=== PATIENT | female | born 1945 | race Caucasian/White ===

== ENCOUNTER → 2020-05-28 13:04 | Outpatient (CLI) | payer MEDICARE, OTHER, SELFPAY ==
--- NOTE | ~2020-05-28 | MM_ITS ---
EXAMINATION: MM screening [facility] HISTORY: Screening TECHNIQUE: Craniocaudal and mediolateral oblique 3-D tomosynthesis images were obtained and synthetic 2-D images were generated. CAD analysis was submitted and interpreted. COMPARISON: Comparison to multiple prior studies sequentially, with oldest reviewed study dated 08/26. BREAST PARENCHYMAL COMPOSITION: Breast composed of scattered areas of fibroglandular density. FINDINGS: There is no evidence of suspicious mass, calcification, or architectural distortion to sugg est malignancy in either breast. There has been no suspicious interval change. IMPRESSION: 1. No mammographic evidence of malignancy. 2. Recommend routine screening mammography in one year. BI-RADS Category 1: Negative Reviewed, dictated and finalized at location A.
== END ==
PROVIDERS: PCP Family Medicine; Visit Provider Family Medicine
DX: Z12.31 Encounter for screening mammogram for malignant neoplasm of breast (principal)
CPT/HCPCS: 77063; 77067

== ENCOUNTER 2021-08-14 11:47 | Outpatient (CLI) | payer MEDICARE, OTHER, SELFPAY ==
--- NOTE | ~2021-08-14 | XR_ITS ---
EXAMINATION: XR chest 2V 08/14/2021 12:15 INDICATION: Cough and shortness of breath. PROCEDURE: 2 view chest COMPARISON: No prior studies for comparison. FINDINGS: The lungs are clear. The cardiomediastinal silhouette is within normal limits. There are no pleural effusions. There is no pneumothorax suspected. There is dextroscoliosis of the thoracic spine. There are cholecystectomy clips. IMPRESSION: 1: NO ACUTE CARDIOPULMONARY DISEASE. Reviewed, dictated and finalized at location B.
== END 2021-08-14 11:48 | disposition home or self-care (01) ==
PROVIDERS: PCP Family Medicine; Visit Provider Nurse Practitioner Family
DX: R05.9 Cough, unspecified (principal)
CPT/HCPCS: 71046

== ENCOUNTER 2021-08-29 14:05 | Outpatient (CLI) | payer MEDICARE, OTHER, SELFPAY ==
[2021-08-29 14:35] LABS: Basophils Percent Auto 0.3 % (0.2-1.2); Eosinophils Absolute Auto 0.2 K/mm3 (0-0.3); Eosinophils Percent Auto 1.6 % (0-4.4); Hematocrit 36.6 % (37.0-47.0); Hemoglobin 10.9 g/dL (12.0-15.0); Immature Granulocyte Absolute 0.08 K/mm3 (0.00-0.031); Immature Granulocyte Percent A 0.6 % (0-0.5); Lymphocytes Absolute Auto 2.28 K/mm3 (0.9-3.2); Lymphocytes Percent Auto 16.7 % (18.3-44.2); Mean Corpuscular HGB Conc 29.8 g/dl (32-36); Mean Corpuscular Hemoglobin 22.1 pg (26-34); Mean Corpuscular Volume 74.1 fl (80-100); Mean Platelet Volume 8.7 fl (7.4-10.4); Monocytes Absolute Auto 1.2 K/mm3 (0.1-0.6); Monocytes Percent Auto 9.1 % (2.6-8.5); Neutrophils Absolute Auto 9.8 K/mm3 (1.3-6.7); Neutrophils Percent Auto 71.7 % (45.5-73.1); Platelet Count Result 321 k/mm3 (150-375); Red Blood Count 4.94 M/mm3 (4.2-5.4); Red Cell Distribution Width 17.7 % (11.5-14.5); White Blood Count 13.6 K/mm3 (4.5-10.0)
[2021-08-29 14:50] LABS: Alanine Aminotransferase 16 U/L (4-35); Alkaline Phosphatase 56 U/L (38-126); Anion Gap 12 mmol/L (8-16); Aspartate Amino Transferase 28 U/L (14-36); Bilirubin,Total 0.5 mg/dL (0.2-1.3); Blood Urea Nitrogen 16 mg/dL (7-17); Calcium 9.4 mg/dL (8.4-10.2); Carbon Dioxide 31 mmol/L (22-30); Chloride 92 mmol/L (98-107); Estimated Glomerular Filt Rate > 60; Glucose 140 mg/dL (65-110); Potassium 3.2 mmol/L (3.4-5.0); Sodium 135 mmol/L (137-145)
== END 2021-08-29 14:06 | disposition home or self-care (01) ==
LOC: ANHLAB 14:09
PROVIDERS: PCP Family Medicine; Visit Provider Physician Assistant
DX: J06.9 Acute upper respiratory infection, unspecified (principal); K21.9 Gastro-esophageal reflux disease without esophagitis; E11.65 Type 2 diabetes mellitus with hyperglycemia
CPT/HCPCS: 36415; 80053; 85025

== ENCOUNTER 2021-09-09 13:36 | Outpatient (CLI) | payer MEDICARE, OTHER, SELFPAY ==
--- NOTE | ~2021-09-09 | CT_ITS ---
EXAMINATION: CT diagnostic chest wo con EXAM DATE: 09/09/2021 14:01 INDICATION: R05.3 - Chronic cough. TECHNIQUE: Spiral CT of the chest without contrast. Axial, coronal and sagittal images of the chest were reviewed. Coronal maximum intensity pixel images of chest reviewed. The dose-length product ( DLP) for this examination was 224.09 mGy-cm. The exposure was tailored according to patient size (au to mA exposure control), and iterative reconstruction (ASIR) was used as additional dose reduction te chnique. Comparison is made to prior examination from 04/28/2015. FINDINGS: There are bibasilar linear opacities, left lower lobe segmental atelectasis and right lower lobe subsegmental atelectasis. There are other scattered reticular nodular opacities most consistent with subacute infectious process, or postinfectious residua. Small amount of lower lobe endobronchia l debris. These findings likely caused by the same process. 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 There are no pleural or peric ardial effusions. There is no mediastinal, hilar or axillary lymphadenopathy. There is no pneum othorax. Heart normal in size. No evidence of coronary arterial calcification. There are cholecy stectomy clips. There is thoracic spondylosis without osteoblastic or osteolytic lesions identified. Multinodular goiter unchanged. IMPRESSION: 1. Left basilar segmental, right basilar subsegmental atelectasis and scattered reticulonodular opac ities likely subacute infectious or postinfectious process. 2. Multinodular goiter. Reviewed, dictated and finalized at location B. [employer] QUALITY INSPECTOR IMPRESSION: 1. Left basilar segmental, right basilar subsegmental atelectasis and scattere d reticulonodular opacities likely subacute infectious or postinfectious proces s. 2. Multinodular goiter.
== END 2021-09-09 13:37 | disposition home or self-care (01) ==
LOC: ANHIMG 13:38
PROVIDERS: PCP Family Medicine; Visit Provider Physician Assistant
DX: R05.3 Chronic cough (principal); R53.83 Other fatigue; E04.2 Nontoxic multinodular goiter
CPT/HCPCS: 71250

== ENCOUNTER 2021-09-15 08:20 | Outpatient (CLI) | payer MEDICARE, OTHER, SELFPAY ==
[2021-09-15 09:11] LABS: Anion Gap 6 mmol/L (8-16); Blood Urea Nitrogen 14 mg/dL (7-17); Calcium 9.6 mg/dL (8.4-10.2); Carbon Dioxide 35 mmol/L (22-30); Chloride 96 mmol/L (98-107); Estimated Glomerular Filt Rate > 60; Glucose 154 mg/dL (65-110); Potassium 3.4 mmol/L (3.4-5.0); Sodium 137 mmol/L (137-145)
== END 2021-09-15 08:21 | disposition home or self-care (01) ==
PROVIDERS: PCP Family Medicine; Visit Provider Family Medicine
DX: E87.6 Hypokalemia (principal)
CPT/HCPCS: 36415; 80048

== ENCOUNTER 2021-09-22 08:44 | Outpatient (CLI) | payer MEDICARE, OTHER, SELFPAY ==
[2021-09-22 09:48] LABS: Basophils Absolute Auto 0.1 K/mm3 (0.0-0.1); Basophils Percent Auto 0.5 % (0.2-1.2); Eosinophils Absolute Auto 0.3 K/mm3 (0-0.3); Eosinophils Percent Auto 2.5 % (0-4.4); Hematocrit 39.2 % (37.0-47.0); Immature Granulocyte Absolute 0.06 K/mm3 (0.00-0.031); Immature Granulocyte Percent A 0.5 % (0-0.5); Lymphocytes Absolute Auto 2.63 K/mm3 (0.9-3.2); Lymphocytes Percent Auto 20.2 % (18.3-44.2); Mean Corpuscular HGB Conc 30.6 g/dl (32-36); Mean Corpuscular Volume 71.9 fl (80-100); Mean Platelet Volume 10.1 fl (7.4-10.4); Monocytes Absolute Auto 1.2 K/mm3 (0.1-0.6); Monocytes Percent Auto 9.4 % (2.6-8.5); Neutrophils Absolute Auto 8.7 K/mm3 (1.3-6.7); Neutrophils Percent Auto 66.9 % (45.5-73.1); Platelet Count Result 318 k/mm3 (150-375); Red Blood Count 5.45 M/mm3 (4.2-5.4); Red Cell Distribution Width 18.4 % (11.5-14.5)
[2021-09-22 10:45] LABS: Add Urine Microscopic? YES; Appearance Urine Cloudy (Clear); Bacteria Urine 1+ /hpf; Bilirubin Urine Negative (Negative); Blood Urine Negative (Negative); Color Urine Amber (Yellow); Glucose Urine UA Negative (Negative); Ketones Urine Trace mg/dL (Negative); Leukocyte Esterase Ur 1+ LEU/UL (Negative); Mucus Urine Rare /lpf; Nitrate Urine Positive (Negative); Protein Urine 1+ mg/dL (Negative); Squamous Epithelial Cell Urine Many /hpf (Few); Urobilinogen Urine Negative mg/dL (<2.0); WBC Urine 16-20 /hpf
== END 2021-09-22 08:45 | disposition home or self-care (01) ==
PROVIDERS: PCP Family Medicine; Visit Provider Family Medicine
DX: E11.65 Type 2 diabetes mellitus with hyperglycemia (principal); N39.0 Urinary tract infection, site not specified; R05.9 Cough, unspecified
CPT/HCPCS: 36415; 81001; 85025; 87077; 87086; 87186

== ENCOUNTER 2021-11-03 10:24 | Outpatient (CLI) | payer MEDICARE, OTHER, SELFPAY ==
[2021-11-03 11:09] LABS: Immunoglobulin A 300 mg/dL (70-400); Immunoglobulin G 822 mg/dL (700-1600); Immunoglobulin M 71 mg/dL (40-230)
[2021-11-07 02:27] LABS: Immunoglobulin E 24 kU/L (<=114)
== END 2021-11-03 10:25 | disposition home or self-care (01) ==
LOC: ANHLAB 10:35
PROVIDERS: PCP Family Medicine; Visit Provider Internal Medicine Critical Care Medicine
DX: R05.3 Chronic cough (principal)
CPT/HCPCS: 36415; 82784; 82785

== ENCOUNTER 2021-12-05 11:13 | Outpatient (CLI) | payer MEDICARE, OTHER, SELFPAY ==
[2021-12-05 13:16] LABS: Procalcitonin 0.1 ng/mL
--- NOTE | 2021-12-05 17:42 | WPDPFTINT ---
PFT Procedure Performed PFT Procedure Performed Spirometry with Pre/Post Bronchodilator Plethysmography (Lung Vol) Diffusing Cap (DLCO) Flow Vol Loop PFT Interpretation This is a pulmonary function test with pre and post-bronchodilator spirometry, plethysmography and diffusing capacity. The test was performed and results interpreted in accordance with the 2019 and 2005 ATS/ERS Task Force guidelines respectively using the Global Lung Function Initiative-2012 reference equations. Patient demonstrated good effort and cooperation. Reproducibility criteria were met. The quality of the pre bronchodilator spirometry maneuver was Grade A and post bronchodilator spirometry maneuver was Grade A. Findings: Spirometry: The contour the inspiratory and expiratory flow tracing are normal. The pre bronchodilator FVC is 2.46 L, 87% predicted. The pre bronchodilator FEV1 is 1.82 L, 84% predicted. The pre bronchodilator FEV1: FVC ratio 74%. The post bronchodilator FVC is 2.33 L, representing a 5% decrease. The post bronchodilator FEV1 is 1.75 L, representing a 4% decrease. The post bronchodilator FEV1: FVC ratio 75%. Plethysmography: The total lung capacity is 4.36 L, 84% predicted. The functional residual capacity is 2.14 L, 72% predicted. The residual volume is 1.90 L, 82% predicted. Diffusing capacity: The diffusing capacity unadjusted for hemoglobin is 15.9, 78% predicted. The diffusing capacity adjusted for alveolar volume is 4.09, 98% predicted. Impression: The spirometry is normal without evidence of an obstructive abnormality. There is no significant improvement after inhaling a single dose of albuterol. The lung volumes are normal. The diffusing capacity is normal. There are no prior studies for comparison
== END 2021-12-05 11:14 | disposition home or self-care (01) ==
PROVIDERS: PCP Family Medicine; Visit Provider Internal Medicine Critical Care Medicine
DX: R05.3 Chronic cough (principal)
CPT/HCPCS: 36415; 84145; 94060; 94726; 94729

== ENCOUNTER 2022-02-02 14:40 | Outpatient (CLI) | payer MEDICARE, OTHER, SELFPAY ==
[2022-02-02 15:04] LABS: Basophils Percent Auto 0.3 % (0.2-1.2); Eosinophils Absolute Auto 0.2 K/mm3 (0-0.3); Eosinophils Percent Auto 2.6 % (0-4.4); Hematocrit 34.1 % (37.0-47.0); Hemoglobin 9.6 g/dL (12.0-15.0); Immature Granulocyte Absolute 0.04 K/mm3 (0.00-0.031); Immature Granulocyte Percent A 0.4 % (0-0.5); Lymphocytes Absolute Auto 1.97 K/mm3 (0.9-3.2); Lymphocytes Percent Auto 21.2 % (18.3-44.2); Mean Corpuscular HGB Conc 28.2 g/dl (32-36); Mean Corpuscular Hemoglobin 21.6 pg (26-34); Mean Corpuscular Volume 76.8 fl (80-100); Monocytes Absolute Auto 0.7 K/mm3 (0.1-0.6); Monocytes Percent Auto 7.5 % (2.6-8.5); Neutrophils Absolute Auto 6.3 K/mm3 (1.3-6.7); Platelet Count Result 175 k/mm3 (150-375); Red Blood Count 4.44 M/mm3 (4.2-5.4); Red Cell Distribution Width 15.4 % (11.5-14.5); White Blood Count 9.3 K/mm3 (4.5-10.0)
[2022-02-02 15:27] LABS: Anisocytosis 1+ (NORMAL); Platelet Estimate Adequate (Adequate); Poikilocytosis 1+ (NORMAL)
[2022-02-02 16:48] LABS: Iron 29 ug/dL (37-170)
[2022-02-02 16:57] LABS: Percent Iron Saturation 6 % (20-50)
[2022-02-02 17:25] LABS: Alanine Aminotransferase 12 U/L (4-35); Albumin Level 4.6 g/dL (3.5-5.1); Alkaline Phosphatase 67 U/L (38-126); Anion Gap 8 mmol/L (8-16); Aspartate Amino Transferase 33 U/L (14-36); Bilirubin,Total 0.4 mg/dL (0.2-1.3); Blood Urea Nitrogen 19 mg/dL (7-17); Calcium 9.1 mg/dL (8.4-10.2); Carbon Dioxide 30 mmol/L (22-30); Chloride 98 mmol/L (98-107); Estimated Glomerular Filt Rate > 60; Glucose 142 mg/dL (65-110); Lactate Dehydrogenase 306 U/L (313-618); Potassium 3.7 mmol/L (3.4-5.0); Sodium 136 mmol/L (137-145)
[2022-02-02 18:24] LABS: Folic Acid 8.5 ng/mL (2.76->20)
[2022-02-02 18:32] LABS: Ferritin 8.58 ng/mL (11.1-264)
[2022-02-05 11:15] LABS: Methylmalonic Acid 350 nmol/L (87-318)
== END 2022-02-02 14:41 | disposition home or self-care (01) ==
PROVIDERS: PCP Family Medicine; Visit Provider Internal Medicine Hematology & Oncology
DX: D64.9 Anemia, unspecified (principal)
CPT/HCPCS: 36415; 80053; 82607; 82728; 82746; 83540; 83550; 83615; 83921; 85025

== ENCOUNTER → 2022-04-10 12:03 | Outpatient (CLI) | payer MEDICARE, OTHER, SELFPAY ==
--- NOTE | ~2022-04-10 | MM_ITS ---
EXAMINATION: MM screening [facility] BI w hilda HISTORY: Screening TECHNIQUE: Craniocaudal and mediolateral oblique 3-D tomosynthesis images were obtained and synthetic 2-D images were generated. CAD analysis was submitted and interpreted. COMPARISON: No prior mammogram is available for comparison at this institution. BREAST PARENCHYMAL COMPOSITION: Breast composed of scattered areas of fibroglandular density FINDINGS: There is no evidence of suspicious mass, calcification, or architectural distortion to sugg est malignancy in either breast. There has been no suspicious interval change. IMPRESSION: 1. No mammographic evidence of malignancy. 2. Recommend routine screening mammography in one year. BI-RADS Category 1: Negative Reviewed, dictated and finalized at location A.
== END ==
PROVIDERS: PCP Family Medicine; Visit Provider Family Medicine
DX: Z12.31 Encounter for screening mammogram for malignant neoplasm of breast (principal)
CPT/HCPCS: 77063; 77067

== ENCOUNTER 2022-07-08 15:30 | Outpatient (CLI) | payer MEDICARE, OTHER, SELFPAY ==
--- NOTE | ~2022-07-08 | US_ITS ---
EXAMINATION: US thyroid DATE: 07/08/2022 17:42 INDICATION: TECHNIQUE: Multiple ultrasound images of the thyroid were obtained. COMPARISON: 03/17/2019, 01/18/2018, 12/24/2016, and 06/16/2016. FINDINGS: The right thyroid lobe measures 6.8 x 3.7 x 4.3 cm. The left thyroid lobe measures 7.3 x 4.8 x 6.8 c m. Heterogeneous parenchymal echogenicity. Numerous solid and mostly solid nodular areas, without no rmal intervening parenchyma, stable from the prior studies given interval differences in technique. IMPRESSION: Stable multinodular goiter, likely not clinically significant. Reviewed, dictated and finalized at location K.
== END 2022-07-08 15:31 | disposition home or self-care (01) ==
LOC: ANHIMG 15:34
PROVIDERS: PCP Family Medicine; Visit Provider Nurse Practitioner Family
DX: E04.2 Nontoxic multinodular goiter (principal)
CPT/HCPCS: 76536

== ENCOUNTER 2022-09-11 08:08 | Outpatient (CLI) | payer MEDICARE, OTHER, SELFPAY | END 2022-09-11 08:09 | disposition home or self-care (01) | PROVIDERS: PCP Family Medicine; Visit Provider Otolaryngology | DX: H90.41 Sensorineural hearing loss, unilateral, right ear, with unrestricted hearing on the contralateral side (principal) | CPT/HCPCS: 36415; 80053; 83036; 92557; 92567 ==

== ENCOUNTER 2022-09-11 10:18 | Outpatient (CLI) | payer MEDICARE, OTHER, SELFPAY ==
[2022-09-11 11:06] LABS: Alanine Aminotransferase 17 U/L (6-35); Albumin Level 4.6 g/dL (3.5-5.1); Alkaline Phosphatase 74 U/L (38-126); Anion Gap 9 mmol/L (8-16); Aspartate Amino Transferase 28 U/L (14-36); Bilirubin,Total 0.6 mg/dL (0.2-1.3); Blood Urea Nitrogen 19 mg/dL (7-17); Calcium 9.6 mg/dL (8.4-10.2); Carbon Dioxide 32 mmol/L (22-30); Chloride 97 mmol/L (98-107); Estimated Glomerular Filt Rate > 60; Glucose 136 mg/dL (65-110); Potassium 3.6 mmol/L (3.4-5.0); Sodium 138 mmol/L (137-145)
[2022-09-11 11:14] LABS: Hemoglobin A1C 7.3 % (<5.7)
== END 2022-09-11 10:19 | disposition home or self-care (01) ==
PROVIDERS: PCP Family Medicine; Visit Provider Nurse Practitioner Family
DX: E87.6 Hypokalemia (principal); E11.65 Type 2 diabetes mellitus with hyperglycemia
CPT/HCPCS: 36415; 80053; 83036

== ENCOUNTER 2022-09-23 10:26 | Outpatient (CLI) | payer MEDICARE, OTHER, SELFPAY ==
--- NOTE | 2022-09-23 10:47 | ECG_ITS ---
Measurements Intervals [place] Rate: 80 P: 49 [place]: 178 QRS: -14 QRSD: 101 T: 55 QT: 407 QTc: 472 Interpretive Statements SINUS RHYTHM DELAYED PRECORDIAL R/S TRANSITION BORDERLINE ST-T WAVE ABNORMALITY- HIGH LATERAL LEADS BASELINE ARTIFACT- I, III, AVR, AVL, AVF BORDERLINE ECG NO PREVIOUS ECG AVAILABLE FOR COMPARISON Electronically Signed On 09-23-2022 12:38:16 DIAGNOSTIC IMAGING MANAGER by Kishna Bullock D.O.
== END 2022-09-23 10:27 | disposition home or self-care (01) ==
PROVIDERS: PCP Family Medicine; Visit Provider Otolaryngology
DX: I10 Essential (primary) hypertension (principal); Z01.818 Encounter for other preprocedural examination; R94.31 Abnormal electrocardiogram [ECG] [EKG]
CPT/HCPCS: 93005

== ENCOUNTER 2022-09-25 00:52 | Day surgery (SDC) | payer MEDICARE, OTHER, SELFPAY ==
[2022-09-16 10:37] VITALS: BMI 34.0
--- NOTE | 2022-09-16 11:06 | PC.NURSE ---
Report to the Outpatient Waiting Room, entrance under the green pavilion located off [facility], at time __8:45AM on date __09/25/22 . Planned Procedure Time: __10:45AM . Time changes happen often and if your time is changed the preop area will call you the afternoon before. - You and your visitor will be asked to self-screen and do not enter if you have any COVID symptoms. - Only one visitor is requested with a max of two and NO children visitors are allowed at this time. - The patient visitor may be requested to leave or wait in car when not with patient due to distancing restrictions. - A mask is optional within the hospital. Patients may have clear liquids (water, carbonated beverages, clear teas, apple juice) until 3 hours prior to surgery with a maximum of 20 ounces. - No food from midnight until time of surgery Take the following medications with a SIP of water the morning of surgery: _ANORO ELLIPTA, PROPRANOLOL, ALBUTEROL INH NEEDED, CLONAZEPAM NEEDED, FLONASE NEEDED Medications to discontinue per physician HOLD ALL VITAMINS/SUPPLEMENTS 3 DAYS PRE-OP Date to take last dose____09/21/22 Please no make-up, nail swedish, hairspray, perfume, deodorant, or body powder the day of surgery. No jewelry (including any body piercings) or valuables the day of surgery, leave them at home. Please take a shower or bath the night before, or the morning of, surgery with an antibacterial soap. Wear comfortable, loose fitting clothing. Children are encouraged to wear pajamas. - Jewelry must be removed prior to entering the operating room. Rings and piercings that are not removed may be cut off. - The hospital will not accept responsibility for valuables. - Please leave all valuables, including medications, at home the day of surgery. If you are going home after surgery, a licensed clamp truck driver must drive you home. - NO public transportation without another adult if you receive anesthesia. - We recommend that an adult stay with you for 24 hours following discharge. - We also recommend that you do not drive, make important decision, drink alcoholic beverages, or take any drugs that were not prescribed by your health care provider for at least 24 hours after your discharge time. Follow any additional instructions given to you from your surgeon. If you or anyone in your household have experienced Covid symptoms in the past week, please notify your surgeon or the nurse liaison at the phone number below for possible testing. Telephone instructions given to __PATIENT and asked if any additional questions and then verbalized understanding. Patient advised to call surgeon office or pre surgery nurse liaison [phone] if any additional questions.
--- NOTE | 2022-09-24 10:50 | PM.IMHP ---
H&P: HPI History of Present Illness Date/Time: 09/24/22 10:50 Chief Complaint: hearing loss bilateral chronic otitis media bilateral eustachian tube dysfunction Narrative: planned surgical procedure Review of Systems Review of Systems: All systems reviewed & are unremarkable except as noted in HPI and below PMFSH Past Medical History Medical History Anxiety Controlled diabetes mellitus with hyperglycemia Diabetes mellitus type 2, uncontrolled Essential hypertension Hypertension LEONID (iron deficiency anemia) Mixed hyperlipidemia Nausea Obstructive sleep apnea UTI (urinary tract infection) Wellness examination Family History Family History Father Arthritis Social History Social History Smoking status: Never smoker Second hand tobacco smoke exposure: Yes (18 YEARS W/ ) Alcohol intake: current Substance use: never Substance use type: does not use Gender identity (if verbalized by the patient): Female Sexual Orientation (if Verbalized by the Patient): Straight or Heterosexual Spiritual care concerns: No Meds Home Medications and Allergies Home Medications Medication Instructions Recorded Confirmed Type blood sugar diagnostic (Blood #100 ea 10/30/19 09/14/22 Rx Glucose Test strips) acetaminophen 650 mg 650 mg PO Q8H PRN pain #360 tabs 07/08/20 09/16/22 Rx tablet,extended release Anoro Ellipta 62.5 mcg-25 1 inh inhalation DAILY 90 days 12/22/21 09/16/22 Rx mcg/actuation powder for #180 ea inhalation (umeclidinium-vilanterol) albuterol sulfate 90 mcg/actuation 1 inh inhalation Q4H PRN shortness 01/01/22 09/16/22 Rx aerosol inhaler of breath or wheezing 1 month #8.5 grams blood sugar diagnostic (FreeStyle #100 ea 04/15/22 09/14/22 Rx Lite Strips) blood-glucose meter (FreeStyle #1 ea 04/15/22 09/14/22 Rx Lite Meter kit) propranolol 10 mg tablet 20 mg PO BID #360 tabs 05/21/22 09/16/22 Rx clonazepam 0.5 mg tablet 0.5 mg PO TID PRN anxiety #90 tabs 09/14/22 09/16/22 Rx dulaglutide 3 mg/0.5 mL 3 mg (0.5 mL) subcut WEEKLY #6 mL 09/14/22 09/16/22 Rx subcutaneous pen injector (Trulicity) pantoprazole 40 mg tablet,delayed 40 mg PO QAM #90 tabs 09/14/22 09/16/22 Rx release (Protonix) sitagliptin phos 50 mg-metformin 1 tablet PO BID #180 tabs 09/14/22 09/16/22 Rx ER 1,000 mg tablet,extend rel 24h mp (Janumet XR) cyanocobalamin (vitamin B-12) 1,000 mcg PO DAILY 09/16/22 09/16/22 History 1,000 mcg capsule diphenhydramine HCl 25 mg capsule 25 mg PO TID PRN Sinus Symptoms 09/16/22 09/16/22 History (Benadryl) fluticasone propionate 50 1 spray intranasal DAILY PRN Nasal 09/16/22 09/16/22 History mcg/actuation nasal Congestion spray,suspension (Flonase Allergy Relief) hydrochlorothiazide 25 mg tablet 25 mg PO QAM 09/16/22 09/16/22 History meloxicam 7.5 mg tablet 7.5 mg PO DAILY #90 tabs 09/21/22 Rx pravastatin 20 mg tablet 20 mg PO DAILY #90 tabs 09/21/22 Rx Allergies Allergy/AdvReac Type Severity Reaction Status Date / Time tramadol Allergy Severe Confusion Verified 09/16/22 10:24 ciprofloxacin Allergy Unknown avoid r/t Verified 09/16/22 10:24 to levaquin allergy levofloxacin Allergy Unknown Neck Verified 09/16/22 10:24 muscle stiffness codeine AdvReac Unknown Headache Verified 09/16/22 10:24 Quinolones AdvReac Unknown neck Verified 09/16/22 10:24 muscle tightness Exam Narrative: fluid both ears Assessment and Plan Assessment and plan (1) Chronic otitis media of both ears: Code(s): H66.93 - Otitis media, unspecified, bilateral Status: Acute Assessment and Plan: plan operating room bilateral eustachian tube balloon dilation nasal endoscopy bilateral myringotomy with T-tube insertion
[2022-09-25] VITALS (7 sets, daily range): BP systolic 128–160; BP diastolic 67–92; PULSE 80–91; RESP 16–20; TEMP 36.2–37.5; O2SAT 95–100
--- NOTE | 2022-09-25 07:15 | WPDHPUPDATE1 ---
History and Physical Update Update Date/Time: 09/25/22 07:15 History and Physical has been reviewed, including an updated exam of the patient. There are NO changes in the patient's condition. Risks, benefits, and alternatives have been discussed and questions answered. Patient agrees to proceed with procedure.
--- NOTE | 2022-09-25 10:14 | WPDANESEPPF ---
Anes - Initial Pre Proc Eval Procedure: Operation Date: 09/25/22 11:30 Proposed Procedures p Bilateral Myringotomy with Insertion T-Tubes - Carson Salazar MD s Bilateral Eustachian Tube Balloon Dilation with Nasal Endoscopy - Carson Salazar MD Date/Time: 09/25/22 10:14 Surgeon: Carson Salazar MD Pre Op Diagnosis: Gregg Chronic Otitis Media, Gregg Eustachian Tube Dysf Patient Data Age: 77 Gender: F Height: 1.63 m Weight: 87.6 kg Last Vital Signs Temp 36.2 C L 09/25/22 09:59 Pulse 89 09/25/22 09:59 Resp 16 09/25/22 09:59 BP 128/67 09/25/22 09:59 Pulse Ox 98 09/25/22 09:59 O2 Del Method Room Air 09/25/22 09:59 Allergies Allergy/AdvReac Type Severity Reaction Status Date / Time tramadol Allergy Severe Confusion Verified 09/25/22 10:04 ciprofloxacin Allergy Intermediate avoid r/t Verified 09/25/22 10:04 to levaquin allergy levofloxacin Allergy Intermediate Neck Verified 09/25/22 10:04 muscle stiffness Quinolones AdvReac Intermediate neck Verified 09/25/22 10:04 muscle tightness codeine AdvReac Mild Headache Verified 09/25/22 10:04 Home Medications Medication Instructions Recorded Confirmed Type blood sugar diagnostic (Blood #100 ea 10/30/19 09/14/22 Rx Glucose Test strips) acetaminophen 650 mg 650 mg PO Q8H PRN pain #360 tabs 07/08/20 09/16/22 Rx tablet,extended release Anoro Ellipta 62.5 mcg-25 1 inh inhalation DAILY 90 days 12/22/21 09/25/22 Rx mcg/actuation powder for #180 ea inhalation (umeclidinium-vilanterol) albuterol sulfate 90 mcg/actuation 1 inh inhalation Q4H PRN shortness 01/01/22 09/25/22 Rx aerosol inhaler of breath or wheezing 1 month #8.5 grams blood sugar diagnostic (FreeStyle #100 ea 04/15/22 09/14/22 Rx Lite Strips) blood-glucose meter (FreeStyle #1 ea 04/15/22 09/14/22 Rx Lite Meter kit) propranolol 10 mg tablet 20 mg PO BID #360 tabs 05/21/22 09/25/22 Rx clonazepam 0.5 mg tablet 0.5 mg PO TID PRN anxiety #90 tabs 09/14/22 09/25/22 Rx dulaglutide 3 mg/0.5 mL 3 mg (0.5 mL) subcut WEEKLY #6 mL 09/14/22 09/16/22 Rx subcutaneous pen injector (Trulicity) pantoprazole 40 mg tablet,delayed 40 mg PO QAM #90 tabs 09/14/22 09/25/22 Rx release (Protonix) sitagliptin phos 50 mg-metformin 1 tablet PO BID #180 tabs 09/14/22 09/25/22 Rx ER 1,000 mg tablet,extend rel 24h mp (Janumet XR) cyanocobalamin (vitamin B-12) 1,000 mcg PO DAILY 09/16/22 09/25/22 History 1,000 mcg capsule diphenhydramine HCl 25 mg capsule 25 mg PO TID PRN Sinus Symptoms 09/16/22 09/25/22 History (Benadryl) fluticasone propionate 50 1 spray intranasal DAILY PRN Nasal 09/16/22 09/25/22 History mcg/actuation nasal Congestion spray,suspension (Flonase Allergy Relief) meloxicam 7.5 mg tablet 7.5 mg PO DAILY #90 tabs 09/21/22 09/25/22 Rx pravastatin 20 mg tablet 20 mg PO DAILY #90 tabs 09/21/22 09/25/22 Rx hydrochlorothiazide 25 mg tablet 25 mg PO QAM #90 tabs 09/24/22 09/25/22 Rx Patient hx anesthesia problems: post op nausea/vomiting Family hx anesthesia problems: none Results Review: All pre-operative results and documents have been reviewed as part of the pre-operative evaluation. [facility] Past Medical History Medical History Anxiety Controlled diabetes mellitus with hyperglycemia Diabetes mellitus type 2, uncontrolled Essential hypertension Hypertension LEONID (iron deficiency anemia) Mixed hyperlipidemia Nausea Obstructive sleep apnea UTI (urinary tract infection) Wellness examination Family History Family History Father Arthritis Social History Social History Smoking status: Never smoker Second hand tobacco smoke exposure: Yes (18 YEARS W/ ) Alcohol intake: current Substance use: never Substance use type: does n
[2022-09-25] MEDS: LACTATED RINGERS 1,000 ML 30 ML IV CONT (10:25)
[2022-09-25 10:27] LABS: Glucose Point of Care 162 mg/dl (65-105)
[2022-09-25] MEDS: SCOPOLAMINE 1.5 MG PATCH TRANSDERM (10:27)
[2022-09-25] MEDS: CIPROFLOXACIN HCL 0.3% OP SOLN 2.5 ML BTL 4 DROP EACH EAR (10:37)
[2022-09-25] MEDS: OXYMETAZOLINE HCL 0.05% NAS 15 ML BTL (*BKC) 1 SPRAY NASAL (10:47)
[2022-09-25 11:29] LABS: Glucose Point of Care 122 mg/dl (65-105)
--- NOTE | 2022-09-25 11:35 | P.OP_ITS ---
Procedure Note - Detailed Date of Procedure 09/25/22 Pre-op Diagnosis Gregg Chronic Otitis Media, Gregg Eustachian Tube Dysf Post-op Diagnosis Same Procedure Performed Bilateral eustachian tube balloon dilation, nasal endoscopy, myringotomy with T- tube insertion Surgeon Carson Salazar MD Anesthesia General Indications see above Findings copious amounts of fluid in the left middle ear purulence on right side of the nasal passage likely from sinuses successful dilation of both eustachian tubes Description of Procedure patient identified consent verified. Patient brought operating. Time-out anesthesia induced endotracheal tube secured taped left lower lip. Patient prepped draped position. Second time-out performed. Boris microscope utilized right EAC examined myringotomy made T-Tube placed drops placed. Left-sided myringotomy made copious amounts of serous fluid suctioned out T-Tube placed successfully drops placed. Afrin-soaked pledgets placed nasal passages allowed to sit for 5 then. Turbinates outfractured not part of the procedure per se minimally outfractured. Eustachian tube balloon dilation performed on both sides following nasal endoscopy. Successful dilation. There is purulence from the right middle meatus maxillary sinus. Patient tolerated the procedure well complications loss 1 cc. Performed all portions of the procedure. Care the patient given Anesthesiology no complications patient taken. Estimated Blood Loss 1 Drains No Packing No Pathology None sent Complications No immediate complications Condition Stable Disposition PACU
== END 2022-09-25 12:50 | disposition home or self-care (01) ==
PROVIDERS: Absent Provider Otolaryngology; PCP Family Medicine; Visit Provider Otolaryngology
PROC: (CPT 69436; principal; 2022-09-25 11:30)
PROC: (CPT 69436; 2022-09-25 11:30)
DX: H66.93 Otitis media, unspecified, bilateral (principal); H69.83 Other specified disorders of Eustachian tube, bilateral; H91.93 Unspecified hearing loss, bilateral; E11.9 Type 2 diabetes mellitus without complications; I10 Essential (primary) hypertension; E78.2 Mixed hyperlipidemia; G47.33 Obstructive sleep apnea (adult) (pediatric); F41.9 Anxiety disorder, unspecified; Z79.51 Long term (current) use of inhaled steroids; Z79.899 Other long term (current) drug therapy; Z79.84 Long term (current) use of oral hypoglycemic drugs; E66.9 Obesity, unspecified; Z68.33 Body mass index [BMI] 33.0-33.9, adult
CPT/HCPCS: 69436; 69706; 82948; A9270; C1726; J0330; J1100; J2405; J2704; J7030; J7120

== ENCOUNTER 2023-06-23 12:05 | Outpatient (CLI) | payer MEDICARE, OTHER, SELFPAY ==
[2023-06-23 13:05] LABS: Anion Gap 9 mmol/L (8-16); Blood Urea Nitrogen 16 mg/dL (7-17); Carbon Dioxide 32 mmol/L (22-30); Chloride 94 mmol/L (98-107); Potassium 3.6 mmol/L (3.4-5.0); Sodium 135 mmol/L (137-145)
[2023-06-23 13:06] LABS: Alanine Aminotransferase 16 U/L (6-35); Albumin Level 4.4 g/dL (3.5-5.1); Alkaline Phosphatase 70 U/L (38-126); Aspartate Amino Transferase 26 U/L (14-36); Bilirubin,Total 0.5 mg/dL (0.2-1.3); Calcium 8.9 mg/dL (8.4-10.2); Estimated Glomerular Filt Rate > 60; Glucose 220 mg/dL (65-110)
[2023-06-23 13:37] LABS: Hemoglobin A1C 6.8 % (<5.7)
== END 2023-06-23 12:06 | disposition home or self-care (01) ==
LOC: ANHLAB 12:07
PROVIDERS: PCP Family Medicine; Visit Provider Family Medicine
DX: E11.9 Type 2 diabetes mellitus without complications (principal)
CPT/HCPCS: 36415; 80053; 83036

== ENCOUNTER 2023-12-24 13:11 | Outpatient (CLI) | payer MEDICARE, OTHER, SELFPAY ==
--- NOTE | ~2023-12-24 | CT_ITS ---
CT Scan of the Chest without Contrast: Clinical Indication: Chronic cough Technique: Contiguous sections were acquired throughout the chest without intravenous contrast. Dose reduction technique was used on this scan by utilizing automated exposure control and iterative recon struction technique. The dose-length product (DLP) was 243.40 mGy-cm. COMPARISON: 09/09/2021 Findings: There is no evidence of any significant mediastinal, hilar or axillary lymphadenopathy. Aberrant righ t subclavian artery noted. The mediastinal soft tissues otherwise appear normal. There is no evidence of pleural or pericardial effusion. Patchy irregular airspace opacity is noted in the medial aspect of the superior segment left lower lo be. No other pulmonary abnormality seen. Images through the upper abdomen reveal cholecystectomy clips. Impression: Focal, patchy irregular airspace disease at the medial aspect of the superior segment left lower lobe . Findings could reflect acute focal pneumonia versus chronic postinflammatory change scarring. Reviewed, dictated and finalized at [facility]. K SUBWAY REPAIR SUPERVISOR Impression: Focal, patchy irregular airspace disease at the medial aspect of the superior s egment left lower lobe. Findings could reflect acute focal pneumonia versus chr onic postinflammatory change scarring.
== END 2023-12-24 13:12 | disposition home or self-care (01) ==
LOC: ANHIMG 13:11
PROVIDERS: PCP Family Medicine; Visit Provider Internal Medicine Critical Care Medicine
DX: R91.8 Other nonspecific abnormal finding of lung field (principal); R05.3 Chronic cough
CPT/HCPCS: 71250

== ENCOUNTER 2024-02-18 12:11 | Outpatient (CLI) | payer MEDICARE, OTHER, SELFPAY ==
--- NOTE | ~2024-02-18 | MM_ITS ---
EXAMINATION: MM screening [facility] BI w hilda HISTORY: Screening mammogram TECHNIQUE: Craniocaudal and mediolateral oblique 3-D tomosynthesis images were obtained and synthetic 2-D images were generated. CAD analysis was submitted and interpreted. COMPARISON: 04/10/2022, 05/28/2020 bilateral screening mammogram examinations BREAST PARENCHYMAL COMPOSITION: There are scattered areas of fibroglandular density. FINDINGS: There is no evidence of suspicious mass, calcification, or architectural distortion to sugg est malignancy in either breast. There has been no suspicious interval change. IMPRESSION: 1. No mammographic evidence of malignancy. 2. Recommend routine screening mammography in one year. BI-RADS Category 1: Negative Reviewed, dictated and finalized at location A.
== END 2024-02-18 12:12 ==
LOC: MICIMG 02-21 07:36
PROVIDERS: PCP Family Medicine; Visit Provider Family Medicine
DX: Z12.31 Encounter for screening mammogram for malignant neoplasm of breast (principal)
CPT/HCPCS: 77063; 77067

== ENCOUNTER 2024-06-07 13:15 | Outpatient (CLI) | payer MEDICARE, OTHER, SELFPAY ==
[2024-06-07 13:29] LABS: Basophils Percent Auto 0.5 % (0.2-1.2); Eosinophils Absolute Auto 0.1 K/mm3 (0-0.3); Eosinophils Percent Auto 1.6 % (0-4.4); Hematocrit 35.4 % (37.0-47.0); Hemoglobin 10.7 g/dL (12.0-15.0); Immature Granulocyte Absolute 0.04 K/mm3 (0.00-0.031); Immature Granulocyte Percent A 0.5 % (0-0.5); Lymphocytes Absolute Auto 2.15 K/mm3 (0.9-3.2); Lymphocytes Percent Auto 25.2 % (18.3-44.2); Mean Corpuscular HGB Conc 30.2 g/dl (32-36); Mean Corpuscular Hemoglobin 23.8 pg (26-34); Mean Corpuscular Volume 78.7 fl (80-100); Mean Platelet Volume 9.5 fl (7.4-10.4); Monocytes Absolute Auto 0.7 K/mm3 (0.1-0.6); Monocytes Percent Auto 8.3 % (2.6-8.5); Neutrophils Absolute Auto 5.5 K/mm3 (1.3-6.7); Neutrophils Percent Auto 63.9 % (45.5-73.1); Platelet Count Result 161 k/mm3 (150-375); Red Cell Distribution Width 15.4 % (11.5-14.5); White Blood Count 8.5 K/mm3 (4.5-10.0)
[2024-06-07 13:37] LABS: Hypochromasia 2+; Platelet Estimate Adequate (Adequate); Schistocytes None Seen
[2024-06-07 13:38] LABS: Anisocytosis 2+; Microcytosis 2+ (NORMAL)
[2024-06-07 19:54] LABS: Iron 42 ug/dL (37-170)
[2024-06-07 20:03] LABS: Percent Iron Saturation 11 % (20-50)
[2024-06-07 20:30] LABS: Ferritin 8.76 ng/mL (11.1-264)
[2024-06-07 22:52] LABS: Folic Acid 5.7 ng/mL (2.76->20)
== END 2024-06-07 13:16 | disposition home or self-care (01) ==
LOC: ANHLAB 13:17
PROVIDERS: PCP Family Medicine; Visit Provider Internal Medicine Hematology & Oncology
DX: D64.9 Anemia, unspecified (principal)
CPT/HCPCS: 36415; 82607; 82728; 82746; 83540; 83550; 85025

== ENCOUNTER 2024-07-31 11:08 | Outpatient (CLI) | payer MEDICARE, OTHER, SELFPAY ==
[2024-07-31 11:23] LABS: Hematocrit 37.1 % (37.0-47.0); Hemoglobin 11.3 g/dL (12.0-15.0); Mean Corpuscular HGB Conc 30.5 g/dl (32-36); Mean Corpuscular Hemoglobin 24.2 pg (26-34); Mean Corpuscular Volume 79.6 fl (80-100); Mean Platelet Volume 9.4 fl (7.4-10.4); Platelet Count Result 138 k/mm3 (150-375); Red Blood Count 4.66 M/mm3 (4.2-5.4); Red Cell Distribution Width 16.5 % (11.5-14.5); White Blood Count 7.5 K/mm3 (4.5-10.0)
[2024-07-31 13:31] LABS: Iron 59 ug/dL (37-170)
[2024-07-31 13:46] LABS: Percent Iron Saturation 16 % (20-50)
== END 2024-07-31 11:09 | disposition home or self-care (01) ==
LOC: ANHLAB 11:11
PROVIDERS: PCP Family Medicine; Visit Provider Internal Medicine Hematology & Oncology
DX: D64.9 Anemia, unspecified (principal)
CPT/HCPCS: 36415; 82728; 83540; 83550; 85027

== ENCOUNTER 2024-12-04 11:43 | Outpatient (CLI) | payer MEDICARE, OTHER, SELFPAY ==
[2024-12-04 11:57] LABS: Hematocrit 37.6 % (37.0-47.0); Hemoglobin 11.4 g/dL (12.0-15.0); Mean Corpuscular HGB Conc 30.3 g/dl (32-36); Mean Corpuscular Hemoglobin 24.3 pg (26-34); Mean Platelet Volume 9.6 fl (7.4-10.4); Platelet Count Result 158 k/mm3 (150-375); Red Cell Distribution Width 15.9 % (11.5-14.5); White Blood Count 8.5 K/mm3 (4.5-10.0)
--- OUTSIDE RECORDS SUMMARY | 2024-12-04 12:24 | XMS_ITS | Referral Summary ---
Author Organization [facility] [address] Address [address] [place] [address] Care Team Providers Care Skin Diving Teacher Name Role Phone Samir Mccray MD Primary Care Provider Encounters Date Type Department Care Team Description 12/04/2024 Telephone [facility] ([facility]) - [facility] ENT [address] [facility] ([place], [place]) Advanced Medicine [address] [place] [address] [place] [address] Earline Cummings MS from Last 3 Months Allergies Active Allergy Reactions Criticality Noted Date Comments Ciprofloxacin Other (See comments) Low 09/25/2019 Never taken, allergy to Levofloxacin Levofloxacin Other (See comments) Low 09/25/2019 Had muscle pain Other Unknown 11/19/2008 Ropinirole Stomach upset Low 08/03/2016 Stomach/GI Upset Tramadol Unknown 11/19/2008 Medications PRECISION XTRA TEST strip 8 Active hydroCHLOROthia zide (HYDRODIURIL) 25 mg tablet 8 Active meloxicam (MOBIC) 7.5 mg tablet [address] (PROTONIX) 40 mg EC tablet 8 Active propranolol (INDERAL) 10 mg tablet 8 Active JANUMET XR 50-1,000 mg tablet, ER multiphase 24 hr 8 Active Trulicity 1.5 mg/0.5 mL pen injectorIndicat ions:patient states that she is taking 3mg 1 Active pravastatin (PRAVACHOL) 20 mg tablet 0 Active gabapentin (NEURONTIN) 300 mg capsule 0 Active clonazePAM (KlonoPIN) 0.5 mg tablet 1 Active famotidine (PEPCID) 40 mg tabletIndicatio ns:Laryngophary ngeal reflux Take 1 tablet (40 mg total) by mouth nightly 30 tablet 2 1 Active Additional Information Patient taking differently:40 mg oralEvery morning, Reported on 06/21/2024 albuterol HFA (PROVENTIL HFA,VENTOLIN HFA,PROAIR HFA) 90 mcg/actuation inhaler 1 Active fluticasone propionate (FLONASE) 50 mcg/actuation nasal spray 2 Active Anoro Ellipta 62.5-25 mcg/actuation blister with device 2 Active metFORMIN (GLUCOPHAGE) 500 mg tablet Take by mouth Ac tive levothyroxine (SYNTHROID) 88 mcg tablet Take 1 tablet (88 mcg total) by mouth playground aide before breakfast Active celecoxib (CeleBREX) 200 mg capsule Take 1 capsule (200 mg total) by mouth 2 (two) times a day Active azelastine (ASTELIN) 137 mcg (0.1 %) nasal spray Administer 1 spray into each nostril 2 (two) times a day Use in each nostril as directed 90 mL 3 4 Active Active Problems Problem Noted Date Diagnosed Date Pneumonia due to Pseudomonas aeruginosa 06/27/20 24 Assessment & Plan (06/30/2024 4:55 PM CDT): Long-standing cough and dyspnea starting approx 9 months ago when visiting son in [place]. History of E. Coli, MSSA, PsA, K. Pneumoniae, various candidal species (glabrata tropicalis, paraspilosis), aspergillus fumigatus isolated from sputum. Most recent sputum 06/21 with heavy MSSA, light PsA. CT chest 06/21 with patchy RUL tree-in-bud infiltrate, peribronchial thickening in LLL concerning for aspiration in the setting of extrinsic esophageal compression by an aberrant R subclavian artery. Sensitivity to fluoroquinolones (shoulder/neck stiffness). - Continue doxycycline for MSSA/potential atypicals (EOT 06/30) - Transition pip-tazo to cefepime to complete ten day course of antimicrobials. 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 Last PTH 06/04/2023 43.3 (normal). Takes Tums at home 2-3 times daily - Continue scheduled Tums Type 2 diabetes mellitus wit h stage 3a chronic kidney disease, without long-term current use of insulin 06/27/2024 Assessment & Plan (06/28/2024 1:31 AM CDT): At home takes metformin + GLP1 (alternates between Trulicity and Ozempic based on availability). In-house A1c 8.1%. - Hold above; start basal-bolus weight-based insulin with sensitive sliding scale - Renally dose medications, avoid nephrotoxic agents - May benefit from JUANA/ARB, SGLT2i (can be done as outpatient) Microcytic anemia 06/27/2024 Assessment & Plan (06/28/2024 3:23 PM CDT): Prior history of iron deficiency. Normal Cologuard in 2019. Intolerant of PO iron. - [place] with deficit of 750mg of elemental iron - 250mg elemental iron today; can dose additional iron pending duration of inpatient stay and complete with her outpatient thread weaver thereafter Diabetic neuropathy 06/27/2024 Assessment & Plan (06/27/2024 10:42 PM CDT): Cont gabapentin 300 TID, adjust as needed for renal function Migraine 06/27/2024 Assessment & Plan (06/27/2024 10:45 PM CDT): Continue propranolol 20 mg BID for prophylaxis Insomnia 06/27/2024 Assessment & Plan (06/27/2024 10:42 PM CDT): - Continue home PRN Klonopin 0.5 mg - PRN Ramelteon Dysphagia lusoria 06/27/2024 Assessment & Plan (06/30/2024 4:56 PM CDT): 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 Her Esophagram is notable for vera aspiration, although with normal swallow function and no aspiration seen. - Normal diet - PROCESS TRAINER consult, appreciate recommendations - MBSS + single-contrast esophagram as above - Pending results of MBSS, - ENT referral at time of discharge Chronic cough 04/11/2024 Assessment & Plan (04/11/2024 12:14 PM CDT): -Patient has suffered for 6 months with a chronic cough and fatigue. We will get copies of all CT scans and sputum sample submitted to outside facilities. -We will get an EKG today for baseline QTC for any future antibiotic plans. -We will repeat a CT scan as it has been 3 months since her last scan -We will get repeat Sputum cultures including AFB cultures. -We will refer her to pulmonology within [facility] for a second opinion -We will not treat the tesha cultures as they are known pathogens of the respiratory tract unlikely to be causing her symptoms. -We had a long discussion about her Ciprofloxacin allergy. She has never taken this medication, she was told by an outside source that her allergy to Levofloxacin would preclude her from trying ciprofloxacin. She would be willing to try a test dose if we needed to treat the pseudomonas in her sputum cultures - Discussed with patient the rational for treatment, culture results, risk of recurrent infection, signs/symptoms of recurrent infection, and to contact ID clinic with any questions or concerns. Thyroid nodule 01/14/2022 PLMD (periodic limb movement disorder) Assessment & Plan (05/08/2021 2:17 PM CDT): The patient denies that her limbs are moving at night when she sleeps. ANTOINETTE (obstructive sleep apnea) 05/08/2021 Assessment & Plan (06/27/2024 10:48 PM CDT): Home CPAP Assessment & Plan (05/08/2021 2:17 PM CDT): Patient continue to wear her CPAP at 8 cm water pressure while sleeping. Her DME is [facility]. Dysphonia 02/08/2021 Laryngopharyngeal reflux 11/08/2020 Sore throat 11/08/2020 Arthralgia of shoulder 11/16/2014 Surgical follow-up care 03/13/2010 Immunizations Name Administration Dates Next Due Influenza, Trivalent, Adjuvanted, Intramuscular 08/04/2019 Influenza, Unspecified 07/25/2017 Pneumococcal, Unspecified 07/25/2017 ZOSTER LIVE 07/25/2017 ZOSTER Recombinant 03/17/2019 Social History Tobacco Use Types Packs/Day Years Used Date Smoking Tobacco: Former Smokeless Tobacco: Never Tobacco Cessation:Counseling Given: Not Answered Alcohol Use Standard Drinks/Week Comments Yes 0 (1 standard drink = 0.6 oz pur e alcohol) wine rare AUDIT-C Answer Date Recorded Q1: How often do you have a drink containing alc ohol? Monthly or less 06/21/2024 Average Number of Drinks Not on file 024 Frequency of Binge Drinking Not on file 05/26 Personal Safety Answer Date Recorded Have you ever been in or are you currently in a harmful physical or emotional relationship or is someone making you feel afraid or unsafe? Denies 06/27/2024 Comments Unknown Sex and Gender Information Value Date Recorded Sex Assigned at Not on file Legal Sex Female 3:40 AM COAT FITTER Gender Identity Not on file Sexual Orientation Not on file Occupation Industry Job Start Date Job End Date retired Not on file Not on file Not on file Last Filed Vital Signs Vital Sign Reading Time Taken Comments Blood Pressure 122/62 07/01/2024 4:06 AM CDT Pulse 70 07/01/2024 4:06 AM CDT Temperature 36.6 C (97.9 F) 07/01/2024 4:06 AM CDT Respiratory Rate 17 07/01/2024 4:06 AM CDT Oxygen Saturation 100% 07/01/2024 4:06 AM CDT Inhaled Oxygen Concentration - - Weight 87.1 kg (192 lb 1.6 oz) 06/27/2024 6:55 P M CDT Height 162.6 cm (5' 4 ) 06/27/2024 6:55 PM CDT Body Mass Index 32.97 06/27/2024 6:55 PM CDT Plan of Treatment Not on file Procedures Procedure Name Priority Date/Time Associated Diagnosis Comments EGFR Routine 06/28/2024 5:41 PM CDT HEMOGLOBIN A1C Routine 06/27/2024 9:54 PM CDT from Last 3 Months or Most Recently Relevant to Health Maintenance Results * (ABNORMAL) eGFR (06/28/2024 5:41 PM CDT) eGFR 55(L) >=60 mL/min/1. 73 m2 Comment: Interpretive Data Reference Interval Normal >/= 90 mL/min/1.73m2 Mildly decreased* 60 - 89 mL/min/1.73m2 Mildly to moderately decreased 45 - 59 mL/min/1.73m2 Moderately to severely decreased 30 - 44 mL/min/1.73m2 Severely decreased 15 - 29 mL/min/1.73m2 Kidney Failure < 15 mL/min/1.73m2 *Relative to young adult level Estimated glomerular filtration rate is determined by the 2020 CKD-EPI equation recommended by the National Kidney Foundation (A Unifying Approach to GFR Estimation: Recommendations of the NKF-ASK Task Force on Reassessing the Inclusion of Race in Diagnosing Kidney Disease, JASN 2020). The CKD-EPI equation should not be used for patients with unstable renal function and has not been validated in children and those over 70. Current interpretive data was last reviewed 2021. Blood 06/28/2024 5:41 PM CDT 06/28/2024 6:23 PM CDT Tawnya Patrick MD LAB BLOOD OR DERABLES Final Result Performing Organization Address City/State/[facility] de Phone Number [facility] Department [place] [address] * (ABNORMAL) Hemoglobin A1c (06/27/2024 9:54 PM CDT) Hgb A1C 8.1(H) 4.0 - 5.6 % Estimated Average Glucose 186 mg/dL [facility] Comment: The ADA recommends reporting an estimated Average Glucose (eAG) with all Hemoglobin A1c results using the equation derived from a study of 507 normal and diabetic adults. Minority populations were underrepresented and children were not included. (Diabetes Care 2020; 43(S1): S66-S76). The eAG is not equivalent to a fasting glucose. Blood 06/27/2024 9:54 PM CDT 06/27/2024 10:20 PM CDT Luis Arenas MD LAB BLOOD ORDERABLES Final Resu lt Performing Organization Address [facility] de Phone Number [facility] Department [place] [address] from Last 3 Months or Most Recently Relevant to Health Maintenance Insurance MEDICARE [employer] MEDICARE [employer] MEDICARE FOR LIFE Advance Directives For more information, please contact: [phone] * Full Code (Latest Code Status on File) Date Activated Date Inactivated Comments 06/27/2024 7:45 PM 07/01/2024 10:40 AM Care Teams Skin Diving Teacher Relationship Specialty Start Date End Date Samir Mccray MD [address] [facility] [address] [place] [address] PCP - General Family Medicine 08/13/17
--- OUTSIDE RECORDS SUMMARY | 2024-12-04 12:24 | XMS_ITS | Referral Summary ---
Author Organization [facility] Address [address] [facility] [place] [address] Care Team Providers Care Audiovisual Technician Name Role Phone Samir Mccray MD Primary Care Provider [phone] Source Comments [facility],non-owned Affiliates and Associated Physician Practices is amultiple site organization consisting of ambulatory clinics and hospital sitesin [place], [place], [place] and [place]. This disclosure is being madepursuant to the Care Everywhere program and may not contain all information available regarding this patient. Last updated 18.[facility] Allergies Active Allergy Reactions Criticality Noted Date Comments Ciprofloxacin Other Low 09/21/2011 Muscle cramps Codeine Headache 05/25/2019 Ferrous Sulfate Unknown,Nausea and/o r Vomiting Low 02/22/2010 Levofloxacin Other Low 09/21/2011 Muscle cramps Ropinirole GI Discomfort Low 08/03/2016 Stomach/GI Upset Tramadol Psychiatric,Unknown Medium 10/31/2007 Medications * Be aware that medications may not be up to date on this document. Alwaysverify current medications with the patient. Medication Sig Dispensed Refills Start Date End Date Status albuterol HFA (Proventil; Ventolin; Proair) 108 (90 Base) MCG/ACT inhaler Inhale 2 (two) puffs by mouth as needed 08/08/2021 Active clonazePAM (KlonoPIN) 0.5 MG tablet Take 1 (one) tablet by mouth as directed 07/06/2022 Active fluticasone propionate (Flonase) 50 MCG/ACT nasal spray [place] 2 (two) sprays into the nose once daily 11/21/2021 Active gabapentin (Neurontin) 300 MG capsule Take 1 (one) capsule by mouth 3 times daily 90 capsule 26 07/17/2021 Active hydroCHLOROthiazide (Hydrodiuril) 25 MG tablet Take 1 (one) tablet by mouth every morning 30 tablet 20 01/30/2022 Active pantoprazole EC (Protonix) 40 MG tablet Take 1 (one) tablet by mouth once daily 30 tablet 21 01/30/2022 Active Anoro Ellipta 62.5-25 MCG/ACT inhaler Inhale 2 (two) puffs by mouth once daily 11/12/2022 Active celecoxib (CeleBREX) 200 MG capsule Take 1 (one) capsule by mouth once daily 30 capsule 11 02/24/2023 Active Janumet XR 50-1000 MG tablet Take 1 (one) tablet by mouth 2 times daily 01/03/2023 Active Trulicity 4.5 MG/0.5ML injection Inject 0.5 mL subcutaneously as directed takes on Sundays02/24/2023 Active ascorbic acid (Vitamin C) 500 MG tablet Take 1 (one) tablet by mouth once daily Active acetaminophen (Tylenol) 325 MG tablet Take 1 (one) tablet by mouth every 6 hours as needed for Fever or Pain Maximum allowable Acetaminophen amount = 4 Grams (4000 mg) / 24 hours. 60 tablet 05/01/2023 Active ibuprofen (Motrin) 600 MG tablet Take 1 (one) tablet by mouth every 6 hours as needed 30 tablet 05/01/2023 Active Additional Information Patient not taking.Reported on 05/14/2023 oxyCODONE, immediate release, (Roxicodone) 5 MG tabletIndications:T hyroid goiter,H/O total thyroidectomy Take 1 (one) tablet by mouth every 4 hours as needed 15 tablet 05/01/2023 Active Additional Information Patient not taking.Reported on 05/14/2023 amoxicillin (Amoxil) 875 MG tablet Take 1 (one) tablet by mouth as directed 04/07/2023 Active celecoxib (CeleBREX) 200 MG capsule Take 1 (one) capsule by mouth as directed 02/24/2023 Active clonazePAM (KlonoPIN) 0.5 MG tablet Take 1 (one) tablet by mouth as directed 03/29/2023 Active clonazePAM (KlonoPIN) 0.5 MG tablet Take 1 (one) tablet by mouth as directed 03/29/2023 Active dulaglutide (Trulicity) 3 MG/0.5ML injection Take 0.5 mL by mouth as directed 09/14/2022 Active fluconazole (Diflucan) 150 MG tablet Take 1 (one) tablet by mouth as directed 04/15/2023 Active fluticasone propionate (Flonase) 50 MCG/ACT nasal spray [place] 1 (one) spray into each nostril as directed 09/25/2022 Active gabapentin (Neurontin) 300 MG capsule Take 1 (one) capsule by mouth as directed 09/11/2022 Active hydroCHLOROthiazide (Hydrodiuril) 25 MG tablet Take 1 (one) tablet by mouth as directed 09/24/2022 Active SITagliptin-metFORM IN XR 24hr (Janumet XR) 50-1000 MG tablet Take 1 (one) tablet by mouth as directed 09/14/2022 Active meloxicam (Mobic) 7.5 MG tablet Take 1 (one) tablet by mouth as directed 09/21/2022 Active pantoprazole EC (Protonix) 40 MG tablet Take 1 (one) tablet by mouth as directed 11/12/2022 Active dulaglutide (Trulicity) 4.5 MG/0.5ML injection Inject 1 Dose subcutaneously as directed 02/24/2023 Active umeclidinium-vilant matthew (Anoro Ellipta) 62.5-25 MCG/ACT inhaler Take 1 Scoop by mouth as directed 02/01/2023 Active celecoxib (CeleBREX) 200 MG capsule Take 1 (one) capsule by mouth 2 times daily Active fluconazole (Diflucan) 150 MG tablet Take 1 (one) tablet by mouth as directed 04/15/2023 Active FREESTYLE LITE STRIPS test strip 04/05/2023 Active levothyroxine (Synthroid) 88 MCG tabletIndications:S /P thyroidectomy Take 1 (one) tablet by mouth daily before breakfast 30 tablet 06/16/2023 Active Active Problems Problem Noted Date Diagnosed Date Thyroid goiter 03/13/2023 Immunizations Name Administration Dates Next Due FLU VACCINE TRI IIV3 SPLIT I M (FLUVIRIN) 07/19/2017,08/11/2016 FLU VACCINE TRI IIV3 SPLIT P F IM (FLUVIRIN) 08/11/2016,08/20/2014,08/11/2013,2012 INFLUENZA VACCINE 10/02/2021, 9,08/01/2018,2016,08/11/2016,08/27/2015,08/20/2014,1 ,11/07/2012 INFLUENZA VACCINE, ADJUVANTE D, TRIV. (FLUAD TRIVALENT; 65Y+) (AIIV3) 08/04/2019 INFLUENZA VACCINE, HIGH-DOSE , QUADR. (FLUZONE HIGH-DOSE QUADRIVALENT; 65Y+), 0.7 ML (HD-IIV4) 08/04/2022,07/22/2020 INFLUENZA VACCINE, QUADR. (F LUZONE; FLULAVAL; FLUARIX; AFLURIA QUADRIVALENT; 6MO+), 0.5 ML (IIV4) 08/04/2019,07/19/2017,08/27/2015 PNEUMOCOCCAL PPSV23 11/18/2012 PNEUMOCOCCAL PPV VACCINE 07/25/2017,07/25/2017 Pneumococcal Pcv13 Conj 08/20/2014 TDAP (7yrs+) 11/18/2012 ZOSTER VACCINE, LIVE 07/25/2017,10/01/2014 Zoster Hzv Vacc Recombinant Inj Im 03/17/2019, Social History Tobacco Use Types Packs/Day Years Used Date Smoking Tobacco: Former Cigarettes Passive Smoke Exposure: Past Smokeless Tobacco: Never Tobacco Cessation:Counseling Given: Not Answered Alcohol Use Standard Drinks/Week Comments Yes 0 (1 standard drink = 0.6 oz pur e alcohol) 2 a month AUDIT-C Answer Date Recorded Q1: How often do you have a drink containing alcohol? Never 04/29/2023 Q2: How many drinks containi ng alcohol do you have on a typical day when you are drinking? Patient does not drink Q3: How often do you have si x or more drinks on one occasion? Never 04/29/2023 Sex and Gender Information Value Date Recorded Sex Assigned at Not on file Gender Identity Not on file Sexual Orientation Not on file Last Filed Vital Signs Vital Sign Reading Time Taken Comments Blood Pressure 129/82 05/14/2023 2:49 PM CDT Pulse 71 05/14/2023 2:49 PM CDT Temperature 37 C (98.6 F) 05/01/2023 7:55 AM CDT Respiratory Rate 18 05/01/2023 7:55 AM CDT Oxygen Saturation 98% 05/01/2023 7:55 AM CDT Inhaled Oxygen Concentration - - Weight 88.5 kg (195 lb) 05/14/2023 2:49 PM CDT Height 163.8 cm (5' 4.5 ) 05/14/2023 2:49 PM CDT Body Mass Index 32.95 05/14/2023 2:49 PM CDT Plan of Treatment Not on file Advance Directives * Full Code (Latest Code Status on File) Date Activated Date Inactivated Comments 04/29/2023 3:53 PM 05/01/2023 12:12 PM Care Teams Audiovisual Technician Relationship Specialty Start Date End Date Samir Mccray MD [address] [facility] [address] [place] [address] PCP - General Family Medicine 06/15/23
--- OUTSIDE RECORDS SUMMARY | 2024-12-04 12:24 | XMS_ITS | Clinical Summary ---
Author Organization [facility] Address [address] [facility] [place] [address] Care Team Providers Care Combining Machine Operator Name Role Phone Samir Mccray MD Primary Care Provider [phone] Source Comments [facility],non-owned Affiliates and Associated Physician Practices is amultiple site organization consisting of ambulatory clinics and hospital sitesin [place], [place], [place] and [place]. This disclosure is being madepursuant to the Care Everywhere program and may not contain all information available regarding this patient. Last updated 18.[employer] [facility] Allergies Active Allergy Reactions Criticality Noted Date [...] fluticasone propionate (Flonase) 50 MCG/ACT nasal spray [place] 2 (two) sprays into the nose once [...] fluticasone propionate (Flonase) 50 MCG/ACT nasal spray [place] 1 (one) spray into each nostril as [...] 05/14/2023 2:49 PM CDT Plan of Treatment Health Maintenance Due Date Last Done Comments BONE DENSITY TESTING 1945 MEDICARE AWV 12 MONTHS 1945 HEPATITIS C SCREENING 03/30/1965 Respiratory Syncytial Virus (RSV) Vaccine Pt: or over 60 yrs (1 - 1-dose 75+ series) 2022 DTAP/TDAP/TD VACCINES (2 - Td or Tdap) 11/18/2022 11/18/2012 COVID-19 VACCINE (3 - season) 2024 12/24/2020, 11/26/2020 INFLUENZA VACCINE (#1) 2024 , 10/02/2021, 07/22/2020, Additional history exists DEPRESSION SCREENING 10/25/2024 PNEUMOCOCCAL VACCINE 50+ Completed 017, 07/25/2017, 08/20/2014, Additional history exists ZOSTER VACCINE Completed 03/17/2019, 11/25, 07/25/2017, Additional history exists HEPATITIS B VACCINE Aged Out No longe r eligible based on patient's age to complete this topic HIB VACCINE Aged Out No longer eligi ble based on patient's age to complete this topic HPV VACCINE Aged Out No longer eligi ble based on patient's age to complete this topic MENINGOCOCCAL (Group B) VACCINE Aged Out No longer eligible based on patient's age to complete this topic MENINGOCOCCAL VACCINE Aged Out No fouzia cathy eligible based on patient's age to complete this topic Advance Directives * Full Code (Latest Code Status on File) Date Activated Date Inactivated Comments 04/29/2023 3:53 PM 05/01/2023 12:12 PM Care Teams Combining Machine Operator Relationship Specialty Start Date End Date Samir Mccray MD [address] [place] [address] PCP - General Family Medicine 06/15/23
--- OUTSIDE RECORDS SUMMARY | 2024-12-04 12:24 | XMS_ITS | Clinical Summary ---
Author Organization [facility] [address] Address [address] [place] [address] Care Team Providers Care System Administrator Name Role Phone Samir Mccray MD Primary Care Provider Allergies Active Allergy Reactions Criticality Noted Date [...] 1 tablet (88 mcg total) by mouth wildlife refuge specialist before breakfast Active celecoxib (CeleBREX) 200 mg [...] 9 months ago when visiting son in [place]. History of E. Coli, MSSA, PsA, K. [...] inpatient stay and complete with her outpatient planting material remover thereafter Diabetic neuropathy 06/27/2024 Assessment & Plan [...] no aspiration seen. - Normal diet - IMPORT CUST[employer] CLEARING AGENT consult, appreciate recommendations - MBSS + single-contrast [...] -We will refer her to pulmonology within [facility] for a second opinion -We will not [...] of shoulder 11/16/2014 Surgical follow-up care 03/13/2010 Encounters Date Type Department Care Team Description 12/04/[address] [facility] Advanced [facility] ([facility] - [facility] E[facility] [address] [facility] 11[address] [place] [address] [place] [address] Earline Cummings MS from Last 3 Months Immunizations Name Administration Dates Next Due Influenza, Trivalent, Adjuvanted, Intramuscular 08/04/2019 Influenza, Unspecified 07/25/2017 Pneumococcal, Unspecified 07/25/2017 ZOSTER LIVE 07/25/2017 ZOSTER Recombinant 03/17/2019 Surgical History Surgery Date Site/Laterality Comments COLONOSCOPY HYSTERECTOMY TOTAL KNEE ARTHROPLASTY Bilateral ROTATOR CUFF REPAIR EYE SURGERY CHOLECYSTECTOMY MYRINGOTOMY W/ TUBES BLADDER SURGERY JOINT REPLACEMENT Bilateral Medical History Medical History Date Comments Aftercare following joint re placement surgery Aftercare following joint re placement - (Added by TW Conv) Anemia Iron deficiency anemia Diabetes mellitus (HCC) Allergic rhinitis Anxiety GERD (gastroesophageal reflux disease) Kidney stone Migraines Family History Medical History Relation Name Comments Arthritis Father Family history of arthritis - (Added by TW Conv) Cancer Father Family history of malignant neoplasm - (Added by TW Conv) Relation Name Status Comments Father Social History Tobacco Use Types Packs/Day Years [...] on file Legal Sex Female 3:40 AM [employer]UNTER Gender Identity Not on file Sexual Orientation Not on file Occupation Industry Job Start Date Job End Date retired Not on file Not on file Not on file Obstetrics History Last Filed Vital Signs Vital Sign Reading [...] 06/27/2024 6:55 PM CDT Plan of Treatment Health Maintenance Due Date Last Done Comments Albumin Creatinine Ratio, Urine 1945 Depression Screening 1945 Hepatitis C Screening 1945 Osteoporosis Screening-Bone Density Scan 1945 Dilated Eye Exam 1947 Foot Exam 1947 Hepatitis B Screening 1965 Well Visit 65+ 2012 DTaP/Tdap/Td Vaccine (2 - Td or Tdap) 11/18/2022 11/18/2012 Influenza Vaccine (#1) 2024 , 07/22/2020, 08/04/2019, Additional history exists Lipid Panel 11/23/2024 11/23/2023, 12/12/2021 Hemoglobin A1C 12/25/2024 06/27/2024 eGFR 06/28/2025 06/28/2024, 06/27/2024 Fall Risk Assessment 06/30/2025 06/30/2024 Pneumococcal vaccine 65+ Completed 017, 08/20/2014, 11/18/2012 Zoster Vaccine Completed 03/17/2019, 11/25, 07/25/2017, Additional history exists Procedures Procedure Name Priority Date/Time Associated Diagnosis [...] MD LAB BLOOD OR DERABLES Final Result [facility] Department [place] [address] * (ABNORMAL) Hemoglobin A1c (06/27/2024 9:54 PM CDT) Hgb A1C 8.1(H) 4.0 - 5.6 % Estimated Average Glucose 186 mg/dL [facility] SMITH Comment: The ADA recommends reporting an estimated Average Glucose (eAG) with all Hemoglobin A1c results using the equation derived from a study of 507 normal and diabetic adults. Minority populations were underrepresented and children were not included. (Diabetes Care 2020; 43(S1): S66-S76). The eAG is not equivalent to a fasting glucose. Blood 06/27/2024 9:54 PM CDT 06/27/2024 10:20 PM CDT us Luis Arenas MD LAB BLOOD ORDERABLES Final Resu lt [facility] Department [place] [address] from Last 3 Months or Most Recently Relevant to Health Maintenance Insurance MEDICARE [facility] [employer] MEDICARE FOR LIFE Advance Directives For more information, please contact: [phone] * Full Code (Latest Code Status on File) Date Activated Date Inactivated Comments 06/27/2024 7:45 PM 07/01/2024 10:40 AM Care Teams System Administrator Relationship Specialty Start Date End Date Samir Mccray MD [address] [facility] [address] [place] [address] PCP - General Family Medicine 08/13/17
--- OUTSIDE RECORDS SUMMARY | 2024-12-04 12:24 | XMS_ITS | Patient Health Summary ---
Author Organization [facility] Address [address] [place] [address] Care Team Providers Care Gaming Cage Worker Name Role Phone Samir Mccray MD Primary Care Provider [phone] Note from [facility],non-owned Affiliates and Associated Physician Practices is amultiple site organization consisting of ambulatory clinics and hospital sitesin [place], [place], [place] and [place]. This disclosure is being madepursuant to the Care Everywhere program and may not contain all information available regarding this patient. Last updated 18.[facility] Allergies * Ciprofloxacin(Other) -Low Criticality * Codeine(Headache) * Ferrous Sulfate(Unknown,Nausea and/or Vomiting) -Low Criticality * Levofloxacin(Other) -Low Criticality * Ropinirole(GI Discomfort) -Low Criticality * Tramadol(Psychiatric,Unknown) -Medium Criticality Medications * Be aware that medications may not be up to date on this document. Alwaysverify current medications with the patient. * albuterol HFA (Proventil; Ventolin; Proair) 108 (90 Base) MCG/ACT inhaler (Started 08/08/2021) Inhale 2 (two) puffs by mouth as needed * clonazePAM (KlonoPIN) 0.5 MG tablet(Started 07/06/2022) Take 1 (one) tablet by mouth as directed * fluticasone propionate (Flonase) 50 MCG/ACT nasal spray(Started 11/21/2021) Pullman 2 (two) sprays into the nose once daily * gabapentin (Neurontin) 300 MG capsule(Started 07/17/2021) Take 1 (one) capsule by mouth 3 times daily 26 refills remaining * hydroCHLOROthiazide (Hydrodiuril) 25 MG tablet(Started 01/30/2022) Take 1 (one) tablet by mouth every morning 20 refills remaining * pantoprazole EC (Protonix) 40 MG tablet(Started 01/30/2022) Take 1 (one) tablet by mouth once daily 21 refills remaining * Anoro Ellipta 62.5-25 MCG/ACT inhaler(Started 11/12/2022) Inhale 2 (two) puffs by mouth once daily * celecoxib (CeleBREX) 200 MG capsule(Started 02/24/2023) Take 1 (one) capsule by mouth once daily 11 refills remaining * Janumet XR 50-1000 MG tablet(Started 01/03/2023) Take 1 (one) tablet by mouth 2 times daily * Trulicity 4.5 MG/0.5ML injection(Started 02/24/2023) Inject 0.5 mL subcutaneously as directed takes on Sundays * ascorbic acid (Vitamin C) 500 MG tablet Take 1 (one) tablet by mouth once daily * acetaminophen (Tylenol) 325 MG tablet(Started 05/01/2023) Take 1 (one) tablet by mouth every 6 hours as needed for Fever or Pain Maximum allowable Acetaminophen amount = 4 Grams (4000 mg) / 24 hours. * ibuprofen (Motrin) 600 MG tablet(Started 05/01/2023) Take 1 (one) tablet by mouth every 6 hours as needed * oxyCODONE, immediate release, (Roxicodone) 5 MG tablet(Started 05/01/2023) Take 1 (one) tablet by mouth every 4 hours as needed * amoxicillin (Amoxil) 875 MG tablet(Started 04/07/2023) Take 1 (one) tablet by mouth as directed * celecoxib (CeleBREX) 200 MG capsule(Started 02/24/2023) Take 1 (one) capsule by mouth as directed * clonazePAM (KlonoPIN) 0.5 MG tablet(Started 03/29/2023) Take 1 (one) tablet by mouth as directed * clonazePAM (KlonoPIN) 0.5 MG tablet(Started 03/29/2023) Take 1 (one) tablet by mouth as directed * dulaglutide (Trulicity) 3 MG/0.5ML injection(Started 09/14/2022) Take 0.5 mL by mouth as directed * fluconazole (Diflucan) 150 MG tablet(Started 04/15/2023) Take 1 (one) tablet by mouth as directed * fluticasone propionate (Flonase) 50 MCG/ACT nasal spray(Started 09/25/2022) Pullman 1 (one) spray into each nostril as directed * gabapentin (Neurontin) 300 MG capsule(Started 09/11/2022) Take 1 (one) capsule by mouth as directed * hydroCHLOROthiazide (Hydrodiuril) 25 MG tablet(Started 09/24/2022) Take 1 (one) tablet by mouth as directed * SITagliptin-metFORMIN XR 24hr (Janumet XR) 50-1000 MG tablet(Started 09/14/2022) Take 1 (one) tablet by mouth as directed * meloxicam (Mobic) 7.5 MG tablet(Started 09/21/2022) Take 1 (one) tablet by mouth as directed * pantoprazole EC (Protonix) 40 MG tablet(Started 11/12/2022) Take 1 (one) tablet by mouth as directed * dulaglutide (Trulicity) 4.5 MG/0.5ML injection(Started 02/24/2023) Inject 1 Dose subcutaneously as directed * umeclidinium-vilanterol (Anoro Ellipta) 62.5-25 MCG/ACT inhaler(Started 02/01/2023) Take 1 Scoop by mouth as directed * celecoxib (CeleBREX) 200 MG capsule Take 1 (one) capsule by mouth 2 times daily * fluconazole (Diflucan) 150 MG tablet(Started 04/15/2023) Take 1 (one) tablet by mouth as directed * FREESTYLE LITE STRIPS test strip(Started 04/05/2023) * levothyroxine (Synthroid) 88 MCG tablet(Started 06/16/2023) Take 1 (one) tablet by mouth daily before breakfast Active Problems Problem Noted Date Diagnosed Date Thyroid goiter 03/13/2023 Immunizations * FLU VACCINE TRI IIV3 SPLIT IM (FLUVIRIN)(Given 07/19/2017, 08/11/2016) * FLU VACCINE TRI IIV3 SPLIT PF IM (FLUVIRIN)(Given 08/11/2016, 08/20/2014, 08/11/2013, 11/07/2012) * INFLUENZA VACCINE(Given 10/02/2021, 08/04/2019, 08/01/2018, 07/25/2017, 08/11/2016, 08/27/2015, 08/20/2014, 08/11/2013, 11/07/2012) * INFLUENZA VACCINE, ADJUVANTED, TRIV. (FLUAD TRIVALENT; 65Y+) (AIIV3)(Given 08/04/2019) * INFLUENZA VACCINE, HIGH-DOSE, QUADR. (FLUZONE HIGH-DOSE QUADRIVALENT; 65Y+), 0.7 ML (HD-IIV4)(Given 08/04/2022, 07/22/2020) * INFLUENZA VACCINE, QUADR. (FLUZONE; FLULAVAL; FLUARIX; AFLURIA QUADRIVALENT; 6MO+), 0.5 ML (IIV4)(Given 08/04/2019, 07/19/2017, 08/27/2015) * PNEUMOCOCCAL PPSV23(Given 11/18/2012) * PNEUMOCOCCAL PPV VACCINE(Given 07/25/2017, 07/25/2017) * Pneumococcal Pcv13 Conj(Given 08/20/2014) * TDAP (7yrs+)(Given 11/18/2012) * ZOSTER VACCINE, LIVE(Given 07/25/2017, 10/01/2014) * Zoster Hzv Vacc Recombinant Inj Im(Given 03/17/2019, 12/09/2018) Social History Tobacco Use Types Packs/Day Years [...] Mass Index 32.95 05/14/2023 2:49 PM CDT Procedures * LAB RESULTS ORDER(Performed 06/14/2023) * LAB RESULTS ORDER(Performed 06/07/2023) * LAB RESULTS ORDER(Performed 06/07/2023) * LAB RESULTS ORDER(Performed 06/04/2023) * LAB RESULTS ORDER(Performed 06/04/2023) * LAB RESULTS ORDER(Performed 05/10/2023) * LAB RESULTS ORDER(Performed 05/07/2023) * LAB RESULTS ORDER(Performed 05/07/2023) * LAB RESULTS ORDER(Performed 05/07/2023) * BASIC METABOLIC PANEL (CALCIUM TOTAL)(Performed 05/01/2023) Performed for Thyroid goiter, Hypocalcemia * GLUCOSE - POINT OF CARE(Performed 05/01/2023) * BASIC METABOLIC PANEL (CALCIUM TOTAL)(Performed 05/01/2023) Performed for Thyroid goiter, Hypocalcemia * GLUCOSE - POINT OF CARE(Performed 04/30/2023) * BASIC METABOLIC PANEL (CALCIUM TOTAL)(Performed 04/30/2023) Performed for Thyroid goiter, Hypocalcemia * GLUCOSE - POINT OF CARE(Performed 04/30/2023) * GLUCOSE - POINT OF CARE(Performed 04/30/2023) * BASIC METABOLIC PANEL (CALCIUM TOTAL)(Performed 04/30/2023) Performed for Thyroid goiter, Hypocalcemia * GLUCOSE - POINT OF CARE(Performed 04/30/2023) * BASIC METABOLIC PANEL (CALCIUM TOTAL)(Performed 04/29/2023) Performed for Thyroid goiter, Hypocalcemia * GLUCOSE - POINT OF CARE(Performed 04/29/2023) * GLUCOSE - POINT OF CARE(Performed 04/29/2023) * MAGNESIUM BLOOD(Performed 04/29/2023) Performed for Thyroid goiter, Hypocalcemia * BASIC METABOLIC PANEL (CALCIUM TOTAL)(Performed 04/29/2023) Performed for Thyroid goiter, Hypocalcemia * PTH POST-OP OR ONLY(Performed 04/29/2023) Performed for Thyroid goiter * GLUCOSE - POINT OF CARE(Performed 04/29/2023) * PATHOLOGY TISSUE(Performed 04/29/2023) Performed for Thyroid goiter * ENDOTRACHEAL TUBE NOTE(Performed 04/29/2023) * THYROIDECTOMY(Performed 04/29/2023) Performed for Thyroid goiter * GLUCOSE - POINT OF CARE(Performed 04/29/2023) * TYPE + SCREEN PANEL(Performed 04/29/2023) Performed for Pre-op exam * TYPE + SCREEN PANEL(Performed 04/06/2023) Performed for Pre-op exam * CT NECK SOFT TISSUE W CONT(Performed 03/12/2023) Performed for Thyroid goiter * CREATININE - POCT INTERFACED(Performed 03/12/2023) Results * LAB RESULTS ORDER (06/14/2023) Only the most recent of9 resultswithin the time period is included. 06/14/2023 Narrative 06/14/2023 Ordered by an unspecified provider. Scanned Document LAB - THERAPEUTIC DR UG MONITORING ORDERABLES * (ABNORMAL) BASIC METABOLIC PANEL (CALCIUM TOTAL) (05/01/2023 8:25 AM CDT) Only the most recent of6 resultswithin the time period is included. BUN 12 7 - 26 mg/dL 05/01/2023 9:21 AM [facility] Creatinine 0.84 0.56 - 0.96 mg/dL 05/01/2023 9:21 AM [facility] Sodium 134(L) 136 - 145 mmol/L 05/01/2023 9:21 AM [facility] Potassium 3.2(L) 3.5 - 4.5 mmol/L 05/01/2023 9:21 AM [facility] Chloride 91(L) 98 - 107 mmol/L 05/01/2023 9:21 AM [facility] CO2 31(H) 22 - 29 mmol/L 05/01/2023 9:21 AM [facility] Glucose 195(H) 70 - 115 mg/dL 05/01/2023 9:21 AM [facility] Calcium 9.4 8.4 - 10.2 mg/dL 05/01/2023 9:21 AM [facility] Anion Gap 15 8 - 18 05/01/2023 9:21 AM [facility] BUN/Creatinine Ratio 14 7 - 23 05/01/2023 9:21 AM [facility] Osmolality Calculated 283 270 - 300 mOsm/kg 05/01/2023 9:21 AM [facility] eGFR by CKD-EPI 72(L) >=90 mL/min/1.7 3 m2 05/01/2023 9:21 AM [facility] Blood BLOOD SPECIMEN / Unknown Lab Venipuncture / Unknown 05/01/2023 8:25 AM CDT 05/01/2023 8:55 AM CDT Abraham Benitez MD LAB - CHEMISTRY ORDAshly LÓPEZ [facility] [address] [place] [address], [place] [phone] * (ABNORMAL) GLUCOSE - POINT OF CARE (05/01/2023 7:53 AM CDT) Only the most recent of9 resultswithin the time period is included. Glucose WB/POC 213(H) 70 - 115 mg/dL 05/01/2023 7:58 AM T [facility] Specimen Type Cap Fingerstick 2022 7:58 AM T [facility] Blood BLOOD SPECIMEN / Unknown 05/01/2023 7:53 AM CDT 05/01/2023 7:58 AM CDT Abraham Benitez MD LAB - POINT OF CARE ORDERABLES [facility] [address] [place] [address], [place] [phone] * (ABNORMAL) MAGNESIUM BLOOD (04/29/2023 5:45 PM CDT) Magnesium 1.3(L) 1.6 - 2.6 mg/dL 04/29/2023 6:29 PM CDT [facility] Comment:Hemolysis detected i n this specimen. Hemolysis is known to cause elevations in this analyte. Caution should be exercised in the interpretation of this result. Recommend repeat testing if clinically indicated. Blood BLOOD SPECIMEN / Unknown Lab Venipuncture / Unknown 04/29/2023 5:45 PM CDT 04/29/2023 5:51 PM CDT Abraham Benitez MD LAB - CHEMISTRY ZOE LÓPEZ Performing Organization Address [facility] Co de Phone Number [address] [address], [facility] [phone] * (ABNORMAL) PTH POST-OP OR ONLY (04/29/2023 3:42 PM CDT) PTH Post-Operative 6.7(L) See Comment pg/mL 04/29/2023 4:28 PM CDT [facility] Comment:A decrease in cirula ting PTH of 50% or more, ten minutes post-resection, signals successful removal of the abnormally secreting parathyroid tissue. Blood BLOOD SPECIMEN / Unknown Venipuncture / Unknown 04/29/2023 3:42 PM CDT 04/29/2023 3:48 PM CDT Abraham Benitez MD LAB - CHEMISTRY ZOE LÓPEZ Performing Organization Address [facility]/ZIP Co de Phone Number [address] [address], [place] [phone] * PATHOLOGY TISSUE (04/29/2023 1:06 PM CDT) Case Report Surgical Pathology Report Case: [id number] Authorizing Provider: Abraham Benitez MD Collected: 04/29/2023 01:06 PM Ordering Location: [facility] OP Received: 04/29/2023 01:42 PM Pathologist: Radha Ames MD Specimen: Thyroid Total, TOTAL THYROIDECTOMY. STITCH IS RIGHT SUPERIOR. 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 05/04/2023 4:26 PM [facility] Microscopic Description and Comment Microscopic examination substantiates the final diagnosis. 05/04/2023 4:26 PM [facility] Clinical History The patient is a 78 year old female with a symptomatic diffusely enlarged goiter 05/04/2023 4:26 PM [facility] Gross Description The requisition and specimen(s) are identified with the patient's name Hannah Prakash. Received in formalin, specimen A , is a 199.5 g, thyroid with a 10.0 x 5.5 x 4.0 cm right lobe (inked blue), 5.5 x 3.5 cm isthmus (inked green), and a 11.0 x 6.0 x 4.0 cm left lobe (inked orange). The specimen is sectioned to reveal a red-sahu nodular gelatinous cut surface. Shorthand Reporter sections submitted as: A1 to A4-right lobe, A5-isthmus, A6 to A9-left lobe. /ml 05/04/2023 4:26 PM [facility] Pathologist Location at [facility] 05/04/2023 4:26 PM [facility] Disclaimer The performance characteristics of all immunohistochemical and indirect immunofluorescence stains (if any) cited in this report were determined by the Histopathology Laboratory of [facility]. Some of these tests were developed by our own laboratory and have not been cleared or approved by the US Food and Drug Administration. The FDA does not require this test to go through premarket FDA review. These tests are used for clinical purposes. They should not be regarded as investigational or for research. This laboratory is certified under the Clinical Laboratory Improvement Amendments (CLIA) as qualified to perform high complexity clinical laboratory testing. This case has been personally reviewed and interpreted by the attending (teaching) pathologist. 05/04/2023 4:26 PM [facility] Embedded Images 05/04/2023 4:26 PM [facility] Biopsy, Excision SPECIMEN FROM THYROID OBTAINED BY TOTAL THYROIDECTOMY / Unknown 04/29/2023 1:06 PM CDT 04/29/2023 1:42 PM CDT Comment:Pre-op diagnosis: THYROID GOITER Abraham Benitez MD LAB - PATHOLOGY/CYTO LOGY ORDERABLES [facility] [address] [place] [address], [facility] [phone] * ETT LINE PERFORMABLE (04/29/2023 12:48 PM CDT) Narrative Sho Junior MD - 04/29/2023 12:48 PM CDT Sho Junior MD 04/29/2023 4:14 PM Endotracheal Tube Placement: Procedure: intubation ([id number]). Procedure Section: Sedation: under general anesthesia. Indications for Airway Management: anesthesia Induction: standard IV Patient Position: supine Mask Ventilation: not attempted. Blade Type: Video Blade Size: 3 Laryngoscopy View: grade 1 (full cords) Intubation Adjuncts: stylet Tube: nerve integrity monitoring tube Placement: oral Tube type: cuff - inflated Tube Size (MM): 7 Depth of Insertion (CM): 21 Measured From: teeth Cuff Inflated With: air Number of Attempts: 1. Placement Verified By: bilateral breath sounds and CO2 detector Dentition unchanged? Yes Difficult Airway? No. Staff Section Anesthesia Provider: Sho Junior MD Provider #1: Leola Guzman Anes Asst, Performed the procedure. Sho Junior MD GENERAL ANESTHESIA O RDERABLES * TYPE + SCREEN PANEL (04/29/2023 10:49 AM CDT) Only the most recent of2 resultswithin the time period is included. Antibody Screen NEG 11:37 AM CDT [facility] ABO Rh O POS 04/29/2023 11:37 AM CDT [facility] Blood Bank BLOOD SPECIMEN / Unknown Venipuncture / Unknown 04/29/2023 10:49 AM CDT 04/29/2023 10:55 AM CDT Deepa Franklin CUT ROLL MACHINE OFFBEARER-CRITICAL CARE EDUCATOR LAB - BLOOD BANK ORDERABLES [facility] [address] [place] [address], [facility] [phone] * CT NECK SOFT TISSUE W CONT (03/12/2023 12:53 PM CDT) Anatomical Region Laterality Modality Head Computed Tomogra phy 03/15/2023 11:0 4 AM CDT Impressions 03/16/2023 10:43 AM CDT IMPRESSION: 1.Marked diffuse enlargement of the thyroid gland with multiple hypodense nodules and coarse calcifications, compatible with goiter. The thyroid gland has increased in size since the CT from 09/09/2021. 2.Substernal extension of the thyroid tissue. Significant mass effect on the surrounding structures including narrowing of the trachea and esophagus. Possible right vocal cord paralysis for which clinical correlation is recommended. 3.Diffuse opacification of multiple paranasal sinuses with hyperdense material, possibly due to allergic sinusitis. Clinical correlation is recommended. > Dictated by Jaron Neri MD, MD (founder president and ceo). I, Karen Ng MD have personally reviewed and interpreted this examination/study. > Interpreting Provider: Karen Ng MD on 03/16/2023 10:43 AM Narrative 03/16/2023 10:43 AM CDT PROCEDURE: CT NECK SOFT TISSUE W CONT, DATE/TIME OF EXAM: 03/12/2023 12:54 PM, LOCATION [facility] INDICATION: E04.9: Thyroid goiter COMPARISON: Outside CT chest from 09/09/2021 and thyroid sonogram from 07/08/2022 were reviewed. EXAMINATION: CT scan of the neck soft tissues with intravenous contrast TECHNIQUE: CT images of the neck soft tissues were obtained according to standard protocol after administration of intravenous contrast according to standard protocol. CT dose reduction technique was used, including Automated Exposure Control. IV CONTRAST: Iopamidol 76% iv soln: 100 ml FINDINGS: The thyroid gland is diffusely enlarged and heterogeneous with multiple irregularly shaped hypodense areas. The largest of these hypodense nodules is in the right thyroid lobe posteriorly measuring approximately 2.5 x 2.5 cm. Scattered coarse calcifications are also seen. *The right thyroid lobe measures 4.1 x 3.4 x 8.5 cm (AP x TV x CC) (series 3 image 75 and series 5 image 63). *The left thyroid lobe measures 4.5 x 3.5 x 10.0 cm (AP x TV x CC) (series 3 image 85 and series 5 image 62). *The thyroid isthmus measures 2.1 cm in thickness and 4.2 cm in height. There is significant mass effect on the surrounding structures with mild narrowing of the trachea and compression of the esophagus. There is substernal extension with the thyroid tissue extending approximately 2.7 cm below the thoracic inlet on the left. Superiorly, the mass extends to the level of epiglottis tip posteriorly on the right. While incompletely visualized on the prior chest CT dated 09/09/2021, the thyroid appears grossly enlarged in all dimensions with increased substernal extension. There is thickening of the right aryepiglottic fold with asymmetric mild enlargement of the right piriform fossa which may be due to right vocal cord paralysis. Remainder of the neck soft tissues are unremarkable. The carotid arteries and internal jugular veins are patent. There is no cervical lymphadenopathy. The included lung apices are clear. The included brain parenchyma is unremarkable. The orbits are within normal limits. There is diffuse opacification of bilateral frontal, ethmoid, maxillary and left sphenoid sinuses with mildly hyperdense material. 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 There is stasis of the left ethmoid sinus septations. No surrounding fat infiltration is noted. Procedure Note Karen Ng MD - 03/16/2023 PROCEDURE: CT NECK SOFT TISSUE W CONT, DATE/TIME OF EXAM: :54 PM, LOCATION [facility] INDICATION: E04.9: Thyroid goiter COMPARISON: Outside CT chest from 09/09/2021 and thyroid sonogram from 07/08/2022were reviewed. EXAMINATION: CT scan of the neck soft tissues with intravenous contrast TECHNIQUE: CT images of the neck soft tissues were obtained according to standard protocol after administration of intravenous contrast according tostandard protocol. CT dose reduction technique was used, including Automated Exposure Control. IV CONTRAST: Iopamidol 76% iv soln: 100 ml FINDINGS: The thyroid gland is diffusely enlarged and heterogeneous with multiple irregularly shaped hypodense areas. The largest of these hypodensenodules is in the right thyroid lobe posteriorly measuring approximately 2.5 x2.5 cm. Scattered coarse calcifications are also seen. *The right thyroid lobe measures 4.1 x 3.4 x 8.5 cm (AP x TV x CC)(series 3 image 75 and series 5 image 63). *The left thyroid lobe measures 4.5 x 3.5 x 10.0 cm (AP x TV x CC)(series 3 image 85 and series 5 image 62). *The thyroid isthmus measures 2.1 cm in thickness and 4.2 cm in height. There is significant mass effect on the surrounding structures with mild narrowing of the trachea and compression of the esophagus. There is substernal extension with the thyroid tissue extending approximately 2.7cm below the thoracic inlet on the left. Superiorly, the mass extends tothe level of epiglottis tip posteriorly on the right. While incompletely visualized on the prior chest CT dated 09/09/2021, the thyroid appears grossly enlarged in all dimensions with increased substernal extension. There is thickening of the right aryepiglottic fold with asymmetric mild enlargement of the right piriform fossa which may be due to right vocal cord paralysis. Remainder of the neck soft tissues are unremarkable. The carotidarteries and internal jugular veins are patent. There is no cervical lymphadenopathy. The included lung apices are clear. The included brain parenchyma is unremarkable. The orbits are within normal limits. There is diffuse opacification of bilateral frontal, ethmoid, maxillaryand left sphenoid sinuses with mildly hyperdense material. Chronic osteitisof the sinus esteban is also seen. There is stasis of the left ethmoid sinus septations. No surrounding fat infiltration is noted. IMPRESSION: 1.Marked diffuse enlargement of the thyroid gland with multiplehypodense nodules and coarse calcifications, compatible with goiter. The thyroid gland has increased in size since the CT from 09/09/2021. 2.Substernal extension of the thyroid tissue. Significant mass effect on the surrounding structures including narrowing of the trachea and esophagus. Possible right vocal cord paralysis for which clinical correlation is recommended. 3.Diffuse opacification of multiple paranasal sinuses with hyperdense material, possibly due to allergic sinusitis. Clinical correlation is recommended. > Dictated by Jaron Neri MD, MD (founder president and ceo). IKaren MD have personally reviewed and interpreted this examination/study. > Interpreting Provider: Karen Ng MD on 03/16/2023 10:43 AM Abraham Benitez MD CT ORDERABLES * CREATININE - POCT INTERFACED (03/12/2023 12:37 PM CDT) Creatinine POCT 0.62 0.30 - 1.30 mg/dL 03/12/2023 1:13 PM CDT [facility] eGFR >90 >90 mL/min/1.7 3 m2 03/12/2023 1:13 PM CDT [facility] Blood BLOOD SPECIMEN / Unknown 03/12/2023 12:37 PM CDT 03/12/2023 1:13 PM CDT Abraham Benitez MD LAB - POINT OF CARE ORDERABLES Performing Organization Address [facility] Co de Phone Number [facility] [address] [place] [id number] [phone] Care Teams Gaming Cage Worker Relationship Specialty Start Date End Date Samir Mccray MD [address] [place] [address] PCP - General Family Medicine 06/15/23
--- OUTSIDE RECORDS SUMMARY | 2024-12-04 12:24 | XMS_ITS | Encounter Summary ---
Author Organization [facility] Address [address] [place] [address] Phone Care Team Providers Care Deputy County Counsel Name Role Phone Samir Mccray MD Primary Care Provider Encounter Details Date Type Department Care Team (Late st Contact Info) Description 12/04/2024 Telephone [place] [facility] ([facility]) - [facility] ENT 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 Gender Identity Not on file Sexual Orientation Not on file Occupation Industry Job Start Date Job End Date retired Not on file Not on file Not on file documented as of this encounter Miscellaneous Notes * Telephone Encounter - Francisco J Cisse - 12/04/2024 8:04 AM CST Pt called to cancel apt ING PROCESS LINE WORKER documented in this encounter Plan of Treatment Not on file documented as of this encounter Visit Diagnoses Not on filedocumented in this encounter Care Teams Deputy County Counsel Relationship Specialty Start Date End Date Samir Mccray MD [address] [facility] [address] [place] [address] PCP - General Family Medicine 08/13/17 documented as of this encounter
--- OUTSIDE RECORDS SUMMARY | 2024-12-04 12:25 | XMS_ITS | Encounter Summary ---
Author Organization [facility] Address [address] [place] [address] Phone Care Team Providers Care Surgical Dressing Maker Name Role Phone Samir Mccray MD Primary Care Provider Encounter Details Date Type Department Care Team (Late st Contact Info) Description 04/13/2024 Orders Only [facility] Scanning, Provider Social History Tobacco Use Types Packs/Day Years Used Date Smoking Tobacco: Former Smokeless Tobacco: Never Alcohol Use Standard Drinks/Week Comments Yes 0 (1 standard drink = 0.6 oz pur e alcohol) wine rare Personal Safety Answer Date Recorded Getting School Help Needed Not on file 12/18 Comments Unknown Sex and Gender Information Value Date Recorded Sex Assigned at Not on file Legal Sex Female 3:40 AM DRY CAN TENDER Gender Identity Not on file Sexual Orientation Not on file Occupation Industry Job Start Date Job End Date retired Not on file Not on file Not on file documented as of this encounter Plan of Treatment Not on file documented as of this encounter Procedures Procedure Name Priority Date/Time Associated Diagnosis Comments SCAN - RADIOLOGY/IMAGING 04/13/2024 documented in this encounter Results * SCAN - RADIOLOGY/IMAGING (04/13/2024) Anatomical Region Laterality Modality Other us Provider Scanning Final Result documented in this encounter Visit Diagnoses Not on filedocumented in this encounter Additional Health Concerns Infection Onset Date Last Indicated Resolved Time COVID: Suspected 06/27/2024 06/27/2024 06/27/2024 11:01 PM CDT documented as of this encounter Care Teams Surgical Dressing Maker Relationship Specialty Start Date End Date Samir Mccray MD [address] [facility] [address] [place] [address] PCP - General Family Medicine 08/13/17 documented as of this encounter
--- OUTSIDE RECORDS SUMMARY | 2024-12-04 12:25 | XMS_ITS | Clinical Summary ---
Author Organization [facility] Address [address] [place] [address] Care Team Providers Care Acreage Reporter Name Role Phone Samir Mccray MD Primary Care Provider [phone] Allergies Active Allergy Reactions Criticality Noted Date Comments Ciprofloxacin Other (see comment) 05/25/2019 Muscle cramps Codeine Headache 05/25/2019 Ferrous Sulfate Nausea and Vomiting,Unknown Low 10/2009 Levofloxacin Other (see comment) 05/25/2019 Muscle cramps Ropinirole Nausea and Vomiting Low 08/03/2016 Stomach/GI Upset Tramadol Hallucinations 11/19/2008 Medications acetaminophen CR (TYLENOL) 650 MG Tab CR 8 hr tablet Take 1 tablet (650 mg total) by mouth 2 (two) times a day. 04/08/2018 Active hydrochlorothia zide 25 MG tablet Take 1 tablet (25 mg total) by mouth every morning. 2019 Active JANUMET XR 50-1000 MG TABLET SR 24 HR 24 hr tablet Take 1 tablet by mouth 2 (two) times a day. 04/14/2019 Active propranolol 10 MG tablet Take 2 tablets (20 mg total) by mouth 2 (two) times daily. 05/01/2019 Active Dulaglutide (TRULICITY) 1.5 MG/0.5ML Solution Pen-injector 4.5ml once weekly 10/31/2020 Active esomeprazole (NEXIUM) 40 MG capsule Active gabapentin 300 MG capsule 07/17/2021 Active pantoprazole EC 40 MG tablet 05/06/2021 Active clonazePAM 0.5 MG tablet 11/04/2020 Active FREESTYLE LITE test strip 01/31/2021 Active albuterol sulfate HFA (PROAIR HFA) 108 (90 Base) MCG/ACT inhalerIndicati ons:Pneumonia of left lower lobe due to infectious organism Inhale 2 puffs into the lungs every 6 (six) hours as needed for Wheezing. 18 g 08/08/2021 Active ANORO ELLIPTA 62.5-25 MCG/ACT inhaler Inhale 2 puffs into the lungs daily. 11/12/2022 Active celecoxib (CELEBREX) 200 MG capsule Take 1 capsule (200 mg total) by mouth 2 (two) times daily. Active Active Problems Problem Noted Date Diagnosed Date Thyroid goiter 03/13/2023 Iron deficiency anemia 02/19/2022 Other dietary vitamin B12 deficiency anemia 01/24 Chronic anemia 02/02/2022 Thyroid nodule 01/14/2022 Obstructive sleep apnea 05/08/2021 Overview (04/07/2023): Last Assessment & Plan: Patient continue to wear her CPAP at 8 cm water pressure while sleeping. Her DME is [facility]. PLMD (periodic limb movement disorder) Overview (04/07/2023): Last Assessment & Plan: The patient denies that her limbs are moving at night when she sleeps. Dysphonia 02/08/2021 Laryngopharyngeal reflux 11/08/2020 Arthralgia of shoulder 11/16/2014 Resolved Problems Problem Noted Date Diagnosed Date Resolved Date Encounter for follow-up exam ination after completed treatment for conditions other than malignant neoplasm 03/13/2010 04/12/2023 Immunizations Name Administration Dates Next Due Fluzone High Dose - >Age 65 (Prefilled Syringe) 08/04/2022,07/22/2020,08/01/2018 Influenza (Generic) 10/02/2021, 9,08/01/2018,2016,08/11/2016,08/11/2016,08/20/2014,1 ,11/07/2012 Influenza Adult (Generic) 07/19/2017,07/19/2017, 08/27/2015 Pneumococcal (Pneumovax 23) 07/25/2017, 3 Pneumococcal (Prevnar 13) 08/20/2014 Shingrix 03/17/2019,12/09/2018 Tdap (Generic) 11/18/2012 Zoster (Zostavax) 81789 Unt/0.65Ml 07/25/2017, Family History Medical History Relation Comments Cancer Father Cancer Maternal Grandfather Heart Disease Maternal Grandfather Heart Disease Maternal Grandmother Alzheimers Mother Cancer Paternal Grandmother Relation Status Comments Father Maternal Grandfather Maternal Grandmother Mother Paternal Grandmother Social History Tobacco Use Types Packs/Day Years Used Date Smoking Tobacco: Former Smokeless Tobacco: Never Tobacco Cessation:Counseling Given: Not Answered Comments:smoked socially in the 70's Alcohol Use Standard Drinks/Week Comments Yes 0 (1 standard drink = 0.6 oz pur e alcohol) rare glass of wine PHQ-2 Answer Date Recorded PHQ-2 Score - If the patient scores above 3, please move on to questions 3-9 1 08/08/2021 Comments No Sex and Gender Information Value Date Recorded Sex Assigned at Not on file Legal Sex Female 8:20 PM CDT Gender Identity Not on file Sexual Orientation Not on file Last Filed Vital Signs Vital Sign Reading Time Taken Comments Blood Pressure 120/82 04/07/2023 10:36 AM CDT Pulse 87 04/07/2023 10:36 AM CDT Temperature 36.4 C (97.5 F) 04/07/2023 10:36 AM CDT Respiratory Rate 20 04/07/2023 10:36 AM CDT Oxygen Saturation 98% 04/07/2023 10:36 AM CDT Inhaled Oxygen Concentration - - Weight 89.4 kg (197 lb 3.2 oz) 04/07/2023 10:36 AM CDT Height 165.1 cm (5' 5 ) 04/07/2023 10:36 AM CDT Body Mass Index 32.82 04/07/2023 10:36 AM CDT Plan of Treatment Health Maintenance Due Date Last Done Comments Kidney Health Evaluation 1945 Diabetes: Retinopathy Eye Exam 1963 Hepatitis C 1963 Annual Medicare Wellness Visit 2012 Dexa Scan (General) 2012 RSV Immunization or 60+ Years (1 - 1-dose 75+ series) 2022 DTaP, Tdap and Td Vaccines (2 - Td or Tdap) 11/18/2022 11/18/2012 COVID-19 Vaccine ( - season) 2024 Influenza Adult (#1) 2024 08/04/2022, 10/02/2021, 07/22/2020, Additional history exists PHQ-2 (Physician [place]) 10/25/2024 Lipid Panel 11/23/2024 11/23/2023, 12/12/2021 Hemoglobin A1C 02/21/2025 08/24/2024, 09/0 12/2023, 04/12/2024, Additional history exists Pneumococcal Vaccine: 65+ Years Completed 07/25/2017, 08/20/2014, 11/18/2012 Zoster Vaccines Completed 03/17/2019, 11/25, 07/25/2017, Additional history exists Meningococcal B Vaccine Aged Out No l onger eligible based on patient's age to complete this topic Meningococcal Vaccine Aged Out No fouzia cathy eligible based on patient's age to complete this topic RSV Immunizations Under 20 Months Aged Out No longer eligible based on patient's age to complete this topic Medical Devices Implanted Type Area Guest Laundry Attendant Device Identifier Shelf Expiration Date Model / Serial / Lot Knee Components Knee Components Bilater al: Knee Iol Jerry [id number] - [id number] Implanted:Qty: 1 on 05/31/2019 by Abraham Canela MD at [facility] Lens Right: Lens [employer] 08/24/2021 [id number] / [id number] / Iol Jerry Au00t0 - [id number] Implanted:Qty: 1 on 06/28/2019 by Abraham Canela MD at [facility] Lens Left: Lens [employer] 04/23/2021 [id number] / [id number] / Procedures Procedure Name Priority Date/Time Associated Diagnosis Comments HEMOGLOBIN, GLYCOSYLATED Routine 08/24/2024 11:12 AM CDT Type 2 diabetes mellitus with hyperglycemia ([facility]/HCC HHS/HCC) LIPID PANEL Routine 11/23/2023 8:40 AM MACHINE LEAD BURNER Type II diabetes mellitus with hyperosmolarity, uncontrolled ([facility]/HCC) Myxedema heart disease Anemia, unspecified from Last 3 Months or Most Recently Relevant to Health Maintenance Results * (ABNORMAL) HEMOGLOBIN, GLYCOSYLATED (08/24/2024 11:12 AM CDT) HGB A1C 7.9(H) <5.7 % 08/24/2024 8:33 PM CDT [facility] Comment: ADA GUIDELINES 2010 5.7 TO 6.4% INCREASED RISK OF DIABETES > OR = 6.5% CONSISTENT WITH DIABETES ESTIMATED AVG GLUCOSE 180 mg/dL 08/24/2024 8:33 PM CDT [facility] 08/24/2024 11:1 2 AM CDT Samir Mccray MD LABORATORY Final Result [facility] [address] [place] [address], [place] [phone] * (ABNORMAL) LIPID PANEL (11/23/2023 8:40 AM MACHINE LEAD BURNER) CHOLESTEROL 135 <200 MG/DL 11/23/2023 9:46 AM [facility] TRIGLYCERIDES 177(H) <150 MG/DL 11/23/2023 9:46 AM [facility] HDL 52 >40.0 MG/DL 11/23/2023 9:46 AM [facility] LDL (CALCULATED) 48 <100 MG/DL 11/23/2023 9:46 AM [facility] NON HDL CHOLESTEROL 83 <130 MG/DL 11/23/2023 9:46 AM [facility] Comment: NOTE: WHEN THE TRIGLYCERIDES ARE >200 mg/dL, NON HDL C IS A SECONDARY TARGET OF THERAPY, WITH A GOAL 30 mg/dL HIGHER THAN THE IDENTIFIED LDL C GOAL. CHOL/HDL RATIO 2.6 0.0 - 4.5 11/23/2023 9:46 AM MACHINE LEAD BURNER [facility] VLDL CALCULATION 35 5 - 55 MG/DL 11/23/2023 9:46 AM MACHINE LEAD BURNER [facility] LIPID INTERPRETATION 11/23/2023 9:46 AM MACHINE LEAD BURNER [facility] Comment: NIH CONCENSUS REPORT RECOMMENDATIONS: ADULT CHILD LOW RISK: CHOLESTEROL <200 <170 TRIGLYCERIDE <150 --- HDL >=60 --- LDL <100 <110 BORDERLINE: CHOLESTEROL 200-239 170-199 TRIGLYCERIDE 150-199 --- HDL 40-59 --- LDL 100-159 110-129 HIGH RISK: CHOLESTEROL >=240 >=200 TRIGLYCERIDE >=200 --- HDL <40 --- LDL >=160 >=130 11/23/2023 8:40 AM MACHINE LEAD BURNER Samir Mccray MD LABORATORY Final Result [facility] [address] [place] [address], from Last 3 Months or Most Recently Relevant to Health Maintenance Insurance MEDICARE [facility] Care Teams Acreage Reporter Relationship Specialty Start Date End Date Samir Mccray MD [address] [place] [id number] PCP - General 08/30/15
--- OUTSIDE RECORDS SUMMARY | 2024-12-04 12:25 | XMS_ITS | Clinical Summary ---
Author Organization [facility] Address [address] [address] Care Team Providers Care Customer Supply Coordinator Name Role Phone Samir Mccray MD Primary Care Provider [phone] Allergies Active Allergy Reactions Criticality Noted Date Comments Ciprofloxacin Unknown Low 05/25/2019 Muscle cramps Codeine Headache Low 05/25/2019 Ferrous Sulfate Nausea and Vomiting Low 02/22/2010 Levofloxacin Unknown Low 05/25/2019 Muscle cramps Ropinirole Nausea and Vomiting Low 08/03/2016 Stomach/GI Upset Tramadol Hallucination,Unknown Low 11/19/2008 Medications gabapentin (NEURONTIN) 300 mg capsule 01/09/2022 Active Trulicity 3 mg/0.5 mL injection 11/21/2021 Active pantoprazole (PROTONIX) 40 mg Tablet, Delayed Release (E.C.) 01/30/2022 Acti ve hydroCHLOROthiaz agueda 25 mg tablet 01/30/2022 Ac tive propranoloL (INDERAL) 10 mg tablet 11/21/2021 Active meloxicam (MOBIC) 7.5 mg tablet 01/05/2022 Active clonazePAM (KlonoPIN) 0.5 mg Tablet 01/30/2022 Active Janumet XR 50-1,000 mg Extended Release 24 hour tablet 01/30/2022 Acti ve Anoro Ellipta 62.5-25 mcg/actuation Disk with Device 12/22/2021 Ac tive ProAir HFA 90 mcg/actuation inhaler 01/01/2022 Active Levothyroxine 88 mcg Capsule Take 88 mcg by mouth daily in the morning. 11/18/2023 Active Active Problems Problem Noted Date Diagnosed Date Other dietary vitamin B12 deficiency anemia 01/24 Iron deficiency anemia 02/19/2022 Chronic anemia 02/02/2022 Encounters Date Type Department Care Team Description 11/16/2024 External Device Data [facility] ABSTRACTION Provider, Abstract 11/14/2024 External Device Data [facility] ABSTRACTION Provider, Abstract from Last 3 Months Family History Medical History Relation Name Comments Cancer Father Relation Name Status Comments Brother Alive Daughter 1 Alive Daughter 2 Alive Father Mother Sister 1 Alive Sister 2 Alive Son Alive Social History Tobacco Use Types Packs/Day Years Used Date Smoking Tobacco: Never Smokeless Tobacco: Never Tobacco Cessation:Counseling Given: Not Answered Alcohol Use Standard Drinks/Week Comments Yes 0 (1 standard drink = 0.6 oz pur e alcohol) Comments No Sex and Gender Information Value Date Recorded Sex Assigned at Not on file Legal Sex Female 10:25 AM YARDAGE CONTROL OPERATOR FORMING Gender Identity Not on file Sexual Orientation Not on file Last Filed Vital Signs Vital Sign Reading Time Taken Comments Blood Pressure 148/88 08/04/2024 11:26 AM CDT Pulse 72 08/04/2024 11:22 AM CDT Temperature 36.6 C (97.8 F) 08/04/2024 11:22 AM CDT Respiratory Rate 16 08/04/2024 11:22 AM CDT Oxygen Saturation 92% 08/04/2024 11:22 AM CDT Inhaled Oxygen Concentration - - Weight 88.9 kg (196 lb) 08/04/2024 11:22 AM CDT Height 162.6 cm (5' 4 ) 07/03/2022 11:30 AM CDT Body Mass Index 33.64 07/03/2022 11:30 AM CDT Plan of Treatment Upcoming Encounters Date Type Department Care Team (Late st Contact Info) Description 12/07/2024 2:15 PM YARDAGE CONTROL OPERATOR FORMING Office Visit [facility] Oncology and Hematology - [place] [address] [place] [address] Cristopher Villatoro MD [address] [place] [address] Health Maintenance Due Date Last Done Comments DIABETES ANNUAL FOOT EXAM 1965 DIABETES MICROALBUMIN ANNUAL SCREEN 1965 LDL CHOLESTEROL ANNUAL 1963 Traditional Medicare (ACO) A nnual Wellness Visit 1964 OSTEOPOROSIS SCREENING 2012 RSV VACCINE (60+ or ) (1 - 1-dose 75+ series) 2022 DTAP/TDAP/TD VACCINES (2 - T d or Tdap) 11/18/2022 11/18/2012 DIABETES ANNUAL RETINAL EXAM 03/03/202307/2022, 03/03/2022, 04/01/2021, Additional history exists INFLUENZA VACCINE (#1) 2024 , 10/02/2021, 07/22/2020, Additional history exists COVID-19 Vaccine (3 - 2023-2 5 season) 2024 12/24/2020, 11/26/2020 DIABETES HBA1C Q 6 MONTHS 12/26/20242023, 06/27/2024, 04/12/2024, Additional history exists PNEUMOCOCCAL VACCINE 65+ YEARS Completed 1 , 07/25/2017, 08/20/2014, Additional history exists ZOSTER VACCINE Completed 03/17/2019, 11/25, 07/25/2017, Additional history exists Insurance MEDICARE PART A AND B [employer] Care Teams Customer Supply Coordinator Relationship Specialty Start Date End Date Samir Mccray MD [address] [facility] [address] [place] [address] PCP - General Family Practice 02/02/22
[2024-12-04 14:41] LABS: Iron 60 ug/dL (37-170)
[2024-12-04 14:51] LABS: Percent Iron Saturation 15 % (20-50)
[2024-12-04 15:20] LABS: Anion Gap 10 mmol/L (4-12); Blood Urea Nitrogen 17 mg/dL (7-17); Calcium 9.1 mg/dL (8.4-10.2); Carbon Dioxide 31 mmol/L (22-30); Chloride 99 mmol/L (98-107); Estimated Glomerular Filt Rate > 60; Glucose 151 mg/dL (65-110); Potassium 3.8 mmol/L (3.4-5.0); Sodium 140 mmol/L (137-145)
[2024-12-04 16:38] LABS: Folic Acid 6.3 ng/mL (2.76->20)
== END 2024-12-04 11:44 | disposition home or self-care (01) ==
PROVIDERS: Visit Provider Internal Medicine Hematology & Oncology
DX: D64.9 Anemia, unspecified (principal)
CPT/HCPCS: 36415; 80048; 82607; 82728; 82746; 83540; 83550; 85027

== ENCOUNTER 2025-04-16 10:25 | Outpatient (CLI) | payer MEDICARE, OTHER, SELFPAY ==
[2025-04-16 11:04] LABS: Alanine Aminotransferase 10 U/L (6-35); Alkaline Phosphatase 42 U/L (38-126); Anion Gap 8 mmol/L (4-12); Aspartate Amino Transferase 23 U/L (14-36); Bilirubin,Total 0.5 mg/dL (0.2-1.3); Blood Urea Nitrogen 19 mg/dL (7-17); Calcium 8.7 mg/dL (8.4-10.2); Carbon Dioxide 30 mmol/L (22-30); Chloride 100 mmol/L (98-107); Estimated Glomerular Filt Rate > 60; Glucose 171 mg/dL (65-110); Potassium 3.5 mmol/L (3.4-5.0); Sodium 138 mmol/L (137-145); Total Protein 7.4 g/dL (6.3-8.2)
[2025-04-16 11:13] LABS: Hemoglobin A1C 7.2 % (<5.7)
== END 2025-04-16 10:26 | disposition home or self-care (01) ==
LOC: ANHLAB 10:26
PROVIDERS: PCP Family Medicine; Visit Provider Family Medicine
DX: E11.65 Type 2 diabetes mellitus with hyperglycemia (principal)
CPT/HCPCS: 36415; 80053; 83036

== ENCOUNTER 2025-05-29 13:32 | Outpatient (CLI) | payer MEDICARE, OTHER, SELFPAY ==
--- NOTE | ~2025-05-29 | MM_ITS ---
EXAMINATION: MM screening peggy BI w hilda HISTORY: Screening TECHNIQUE: Craniocaudal and mediolateral oblique 3-D tomosynthesis images were obtained and synthetic 2-D images were generated. CAD analysis was submitted and interpreted. COMPARISON: Comparison to multiple prior studies sequentially, with oldest reviewed study dated 09/25. BREAST PARENCHYMAL COMPOSITION: There are scattered areas of fibroglandular density. FINDINGS: There is no evidence of suspicious mass, calcification, or architectural distortion to sug gest malignancy in either breast. IMPRESSION: 1. No mammographic evidence of malignancy. 2. Recommend routine screening mammography in one year. BI-RADS Category 1: Negative Reviewed, dictated and finalized at location B.
== END 2025-05-29 13:33 | disposition home or self-care (01) ==
LOC: MICIMG 13:35
PROVIDERS: PCP Family Medicine; Visit Provider Family Medicine
DX: Z12.31 Encounter for screening mammogram for malignant neoplasm of breast (principal)
CPT/HCPCS: 77063; 77067

== ENCOUNTER 2025-06-26 13:42 | Outpatient (CLI) | payer MEDICARE, OTHER, SELFPAY ==
--- NOTE | ~2025-06-26 | CT_ITS ---
EXAMINATION: CT sinus wo con DATE: 06/26/2025 14:02 INDICATION: Nasal congestion TECHNIQUE: Computed tomography (CT) of the paranasal sinuses was performed without intravenous contrast. The dose-length product was 310.09 mGy-cm. Automated exposure control and iterative reconstruction technique were employed. COMPARISON: None FINDINGS: There is soft tissue opacification of all paranasal sinuses with expansion of the left maxillary and ethmoid sinuses with thinning of the bony esteban. There is a left mastoid effusion. No significant nasal septal deviation. Ostiomeatal units are occluded bilaterally. IMPRESSION: 1. Pansinusitis with expansion of the left maxillary sinus and left ethmoid air cells. Possible erosive changes raising concern for aggressive infectious sinusitis. Less likely possibility is neoplasm. Recommend ENT consultation. Reviewed, dictated and finalized at location O. IMPRESSION: 1. Pansinusitis with expansion of the left maxillary sinus and left ethmoid air cells. Possible erosive changes raising concern for aggressive infectious sinu sitis. Less likely possibility is neoplasm. Recommend ENT consultation.
== END 2025-06-26 13:43 | disposition home or self-care (01) ==
LOC: MICIMG 13:44
PROVIDERS: PCP Otolaryngology; Visit Provider Otolaryngology
DX: R09.81 Nasal congestion (principal); J32.9 Chronic sinusitis, unspecified; J33.9 Nasal polyp, unspecified; J34.2 Deviated nasal septum; J34.3 Hypertrophy of nasal turbinates
CPT/HCPCS: 70486

== ENCOUNTER 2025-09-11 13:57 | Outpatient (CLI) | payer MEDICARE, OTHER, SELFPAY ==
[2025-09-11 14:51] LABS: Alanine Aminotransferase 11 U/L (6-35); Albumin Level 4.4 g/dL (3.5-5.1); Alkaline Phosphatase 58 U/L (38-126); Anion Gap 10 mmol/L (4-12); Aspartate Amino Transferase 25 U/L (14-36); Bilirubin,Total 0.7 mg/dL (0.2-1.3); Blood Urea Nitrogen 21 mg/dL (7-17); Calcium 8.8 mg/dL (8.4-10.2); Carbon Dioxide 31 mmol/L (22-30); Chloride 96 mmol/L (98-107); Estimated Glomerular Filt Rate 45; Glucose 101 mg/dL (65-110); Potassium 4.0 mmol/L (3.4-5.0); Sodium 137 mmol/L (137-145); Total Protein 8.0 g/dL (6.3-8.2)
[2025-09-11 17:13] LABS: Hemoglobin A1C 6.4 % (<5.7)
== END 2025-09-11 13:58 | disposition home or self-care (01) ==
LOC: ANHLAB 13:59
PROVIDERS: PCP Family Medicine; Visit Provider Family Medicine
DX: E11.65 Type 2 diabetes mellitus with hyperglycemia (principal)
CPT/HCPCS: 36415; 80053; 83036

== ENCOUNTER 2025-10-02 14:12 | Outpatient (CLI) | payer MEDICARE, OTHER, SELFPAY ==
[2025-10-02 15:12] LABS: Anion Gap 11 mmol/L (4-12); Blood Urea Nitrogen 23 mg/dL (7-17); Calcium 8.9 mg/dL (8.4-10.2); Carbon Dioxide 27 mmol/L (22-30); Chloride 97 mmol/L (98-107); Estimated Glomerular Filt Rate 46; Glucose 168 mg/dL (65-110); Potassium 3.2 mmol/L (3.4-5.0); Sodium 135 mmol/L (137-145)
== END 2025-10-02 14:13 | disposition home or self-care (01) ==
LOC: ANHLAB 14:14
PROVIDERS: PCP Family Medicine; Visit Provider Physician Assistant
DX: N17.9 Acute kidney failure, unspecified (principal)
CPT/HCPCS: 36415; 80048

== ENCOUNTER 2025-10-08 13:06 | Outpatient (CLI) | payer MEDICARE, OTHER, SELFPAY ==
--- NOTE | ~2025-10-08 | XR_ITS ---
EXAMINATION: XR chest 2V, 10/08/2025 13:25 COUNTER FORMER HISTORY: R09.89 - Other specified symptoms and signs involving the... COMPARISON: No comparisons available. Technique: 2 views obtained. Findings: Small left basilar infiltrate and effusion No pneumothorax. Heart is normal size. Mediastinal and hilar contours are within normal limits. Bony thorax no acute abnormality. Impression: Small left lower lobe pneumonia Reviewed, dictated and finalized at location P. TER FORMER Impression: Small left lower lobe pneumonia
== END 2025-10-08 13:07 | disposition home or self-care (01) ==
PROVIDERS: PCP Family Medicine; Visit Provider Internal Medicine Critical Care Medicine
DX: R09.89 Other specified symptoms and signs involving the circulatory and respiratory systems (principal); J18.9 Pneumonia, unspecified organism
CPT/HCPCS: 71046